=== PATIENT | female | born 1955 | race Caucasian/White ===

== ENCOUNTER → 2017-07-08 10:24 | Outpatient (CLI) | payer OTHER, SELFPAY ==
[2017-07-08 11:36] LABS: Anion Gap 4 (5-15); BUN 10 mg/dL (7-18); BUN/Creat Ratio 13.4 RATIO (10-20); Calcium,Total 9.7 mg/dL (8.5-10.1); Chloride 106 mmol/L (98-107); Creatinine, Serum 0.75 mg/dL (0.55-1.02); EST Glomerular Filtration Rate 84 mL/min (>60); Est Glom Filt Rate - Afr Amer 101 mL/min (>60); Glucose 86 mg/dL (74-106); Potassium 3.8 mmol/L (3.5-5.1); Sodium Level 139 mmol/L (136-145)
== END ==
PROVIDERS: Visit Provider Nurse Practitioner Family
DX: I25.10 Atherosclerotic heart disease of native coronary artery without angina pectoris (principal); I10 Essential (primary) hypertension
CPT/HCPCS: 36415; 80048

== ENCOUNTER → 2017-12-02 09:53 | Outpatient (CLI) | payer OTHER, SELFPAY ==
[2017-12-02 12:57] LABS: AST(SGOT) 22 U/L (15-37); Alanine Aminotransfer ALT/SGPT 32 U/L (13-56); Albumin, Serum 3.8 g/dL (3.2-5.0); Alkaline Phosphatase 97 U/L (45-117); Bilirubin, Direct 0.16 mg/dL (0.00-0.30); Cholesterol 162 mg/dL (200); Globulin 3.7 g/dL (2.2-4.2); High Density Lipoprotein 52 mg/dL; Protein, Total 7.5 g/dL (6.4-8.2); Triglycerides 140 mg/dL; Very Low Density Lipoprotein 28 mg/dL (5-40)
== END ==
PROVIDERS: Nurse Practitioner Family; Visit Provider Internal Medicine Cardiovascular Disease
DX: E78.5 Hyperlipidemia, unspecified (principal); Z79.899 Other long term (current) drug therapy; I25.10 Atherosclerotic heart disease of native coronary artery without angina pectoris
CPT/HCPCS: 36415; 80061; 80076

== ENCOUNTER → 2018-05-12 10:24 | Outpatient (CLI) | payer OTHER, SELFPAY ==
[2018-05-12 12:33] LABS: AST(SGOT) 19 U/L (15-37); Alanine Aminotransfer ALT/SGPT 31 U/L (13-56); Albumin, Serum 3.7 g/dL (3.2-5.0); Alkaline Phosphatase 100 U/L (45-117); Bilirubin, Direct 0.15 mg/dL (0.00-0.30); Cholesterol 164 mg/dL (200); Globulin 3.5 g/dL (2.2-4.2); High Density Lipoprotein 52 mg/dL; Protein, Total 7.2 g/dL (6.4-8.2); Triglycerides 158 mg/dL; Very Low Density Lipoprotein 32 mg/dL (5-40)
--- OUTSIDE RECORDS SUMMARY | 2018-07-14 07:42 | XMS RPT_ITS ---
:1955 Author Organization OHIP Care Team Providers Name Role Phone Minesh Urban Attending Unavailable Minesh Urban Referring Unavailable Primay Care Physicia, No Primary Care Unavailable MoodPrince landa Attending Unavailable Primay Care Physicia, No Referring Unavailable Minesh Urban Attending Unavailable Primay Care Physicia, No Referring Unavailable Primay Care Physicia, No Primary Care Unavailable Minesh Urban Attending Unavailable Minesh Urban Referring Unavailable Primay Care Physicia, No Primary Care Unavailable Moodispasona, Prince Attending Unavailable Moodispasona, Prince Referring Unavailable Primay Care Physicia, No Primary Care Unavailable [facility] Admitting Unavailable [facility] Attending Unavailable [facility] Primary Care Unavailable LAURENCE BAIG Consulting Unavailable PROBLEMS PROBLEMS DATE TYPE CONDITION / CODE ATTENDING STATUS SOURCE 08/05/2017 Unknown I25.10 - Minesh Urban [place] Atherosclerotic heart [facility] coronary artery Repository without angina pectoris / I25.10(ICD-10) 07/08/2017 Unknown I10 - Essential Minesh Urban [place] (primary) [facility] hypertension / Hospital I10(ICD-10) Repository PROCEDURES PROCEDURES No Procedure Records FoundRESULTS RESULTS LIVER PROFILE Collected: 05/12/2018 Status: F Source: JELM 10:30 AM [facility] [place] REPOSITORY TYPE CODE TESTS RESULT OUT OF RANGE REFERENCE UNITS LAB L501.1500 6.4-8.2 g/dL Normal T PROT 7.2 LAB L501.1800 3.2-5.0 g/dL Normal ALB 3.7 LAB L501.1950 2.2-4.2 g/dL Normal GLOB 3.5 LAB L501.4100 15-37 U/L Normal AST 19 LAB L501.4305 45-117 U/L Normal ALK P 100 LAB L501.4405 13-56 U/L Normal ALT 31 LAB L501.4600 0.20-1.00 mg/dL Normal T BILI 0.50 LAB L501.4700 0.00-0.30 mg/dL Normal D BILI 0.15 Performed By: #### L500.3400, L500.4100 #### [facility] [address] [place], [address] LIPID PROFILE Collected: 05/12/2018 Status: F Source: JELM 10:30 AM [facility] [place] REPOSITORY TYPE CODE TESTS RESULT OUT OF RANGE REFERENCE UNITS LAB L501.4900 200 mg/dL Normal CHOL 164 Result Comment: <200 mg/dL Desirable 200-240 mg/dL Borderline >240 mg/dL High Risk LAB L501.5000 mg/dL Normal TRIG 158 Result Comment: The drugs N-Acetylcysteine and Metamizole may falsely depress this assay. Serum Triglycerides Reference Interval Normal <150 mg/dL Borderline high 150 - 199 mg/dL High 200 - 499 mg/dL Very High > or = 500 mg/dL LAB L501.6400 mg/dL Normal HDL 52 Result Comment: The drugs N-Acetylcysteine and Metamizole may falsely depress this assay. Reference Range HDL <40 mg/dL Low HDL Cholesterol HDL >or= 60 mg/dL High HDL Cholesterol LAB L501.6500 0-130 mg/dL Normal LDL 80 LAB L501.6600 5-40 mg/dL Normal VLDL 32 Performed By: #### L500.3400, L500.4100 #### [facility] [address] [place], [place], [id number] LIVER PROFILE Collected: 12/02/2017 Status: F Source: JELM 9:57 AM [facility] [place] REPOSITORY TYPE CODE TESTS RESULT OUT OF RANGE REFERENCE UNITS LAB L501.1500 6.4-8.2 g/dL Normal T PROT 7.5 LAB L501.1800 3.2-5.0 g/dL Normal ALB 3.8 LAB L501.1950 2.2-4.2 g/dL Normal GLOB 3.7 LAB L501.4100 15-37 U/L Normal AST 22 LAB L501.4305 45-117 U/L Normal ALK P 97 LAB L501.4405 13-56 U/L Normal ALT 32 LAB L501.4600 0.20-1.00 mg/dL Normal T BILI 0.60 LAB L501.4700 0.00-0.30 mg/dL Normal D BILI 0.16 Performed By: #### L500.3400, L500.4100 #### [facility] [address] [place], [place], [address] LIPID PROFILE Collected: 12/02/2017 Status: F Source: JELM 9:57 AM [facility] [place] REPOSITORY TYPE CODE TESTS RESULT OUT OF RANGE REFERENCE UNITS LAB L501.4900 200 mg/dL Normal CHOL 162 Result Comment: <200 mg/dL Desirable 200-240 mg/dL Borderline >240 mg/dL High Risk LAB L501.5000 mg/dL Normal TRIG 140 Result Comment: The drugs N-Acetylcysteine and Metamizole may falsely depress this assay. Serum Triglycerides Reference Interval Normal <150 mg/dL Borderline high 150 - 199 mg/dL High 200 - 499 mg/dL Very High > or = 500 mg/dL LAB L501.6400 mg/dL Normal HDL 52 Result Comment: The drugs N-Acetylcysteine and Metamizole may falsely depress this assay. Reference Range HDL <40 mg/dL Low HDL Cholesterol HDL >or= 60 mg/dL High HDL Cholesterol LAB L501.6500 0-130 mg/dL Normal LDL 82 LAB L501.6600 5-40 mg/dL Normal VLDL 28 Performed By: #### L500.3400, L500.4100 #### [facility] [address] [place], [address] CARDIOLOGY VISIT Observed: 07/08/2017 Status: F Source: [place] REPORT 2:44 PM [facility] REPOSITORY [facility] [address] [place] [address] OFFICE VISIT Date of Service: 07/08/17 MR#: [id number] Acct: [id number] Name: LAURENCE BAIG Rep #: [id number] : 1955 Provider: VARGAS Urban Age/Sex: 61/F Location: [facility] [place] Status: Signed HPI HPI Details: LAURENCE BAIG, is a 61 F who presents to the office today for a cardiovascular outpatient follow-up. She has a history of cardiomyopathy, which has resolved, syncope in 2010, ventricular ectopy/PVCs, coronary artery disease, hypertension, and hyperlipidemia. Pt. denies chest, arm, jaw, or neck discomfort. Her exercise tolerance is stable though limited d/t back pain. Pt. denies symptoms of CHF, palpitations, lightheadedness, dizziness, near syncope, or syncopal episodes. Pt. denies edema or claudication issues. Pt. denies orthopnea, PND, fever, chills, blood in urine, blood in stool, or unexplainable fatigue. Patient states some leg muscle pain and cramps. She does acknowledge some back pain that may be contributing to this. Intake Vital Signs07/08/17 Height 5 ft 6 in 07/08/17 Weight: 198 lb 07/08/17 Body Mass Index (BMI) 31.9 07/08/17 Blood Pressure 142/88 07/08/17 Blood Pressure Location Lt brachial Intake Visit Reasons: 1 Y FU Proof Carrier Required: No Accompanied by: None Is patient in pain?: No Allergies latex Adverse Reaction (Severe, Verified 07/08/17 09:39) Rash lisinopril Adverse Reaction (Severe, Verified 07/08/17 09:39) Caused cough oxycodone Adverse Reaction (Intermediate, Verified 07/08/17 09:39) Nausea AND Vomiting GABDOLINIUM Allergy (Uncoded 03/19/14 13:36) Anaphylaxis Medications Aspirin E.C. [Ecotrin] 325 mg PO DAILY@0800 03/19/14 [History Confirmed 07/02/17] Losartan Potassium [Cozaar] 25 mg PO BID 03/19/14 [History Confirmed 07/02/17] Metoprolol Tartrate [Lopressor (beta camilla)] 25 mg PO BID 03/19/14 [History Confirmed 07/02/17] Potassium Chloride [K-Dur] 20 meq PO DAILY 03/19/14 [History Confirmed 07/02/17] Triamterene 37.5MG/Hctz 25MG [Dyazide (G)] 1 cap PO DAILY 03/19/14 [History Confirmed 07/02/17] atorvastatin 80 mg tablet 80 mg PO QHS tab 07/02/17 [History Confirmed 07/02/17] ibuprofen 200 mg tablet See Label Instructions PO QDAY PRN tab 07/02/17 [History Confirmed 07/02/17] vitamins-lipotropics tablet 1 tab PO QDAY 07/08/17 [History Confirmed 07/08/17] Ejection fraction %: 55 to 59 PFSH Medical History Atherosclerotic heart disease of circle coronary artery without angina pectoris (Chronic) Premature ventricular contractions (Chronic) Cardiomyopathy in other diseases classified elsewhere (Chronic) Hypertension (Chronic) Hyperlipidemia (Chronic) Syncope and collapse (Acute) Surgical History History of laparoscopic appendectomy (Resolved 02/2014) Family History Father Cancer Lung cancer Brother Hypertension Social History Smoking Status: Current some day smoker tobacco type: cigarettes quit status: considering quitting alcohol intake: current alcohol intake frequency: a few times a week Alcohol type: wine substance use type: does not use caffeine: Yes Type: tea what type of physical activity do you participate in: none seatbelt use: always do you feel safe at home: Yes ROS Const Const: Negative for fatigue, weakness, body ache, fever(s) or chills ENT ENT: Negative for dizziness Cardio Chest Pain: No Palpitations: No Edema: None Muscle aches with walking: None Resp Respiratory: Negative for SOB with activity, SOB at rest, SOB orthopnea\SOB lying down or paroxysmal nocturnal dyspnea GI GI: Negative nausea, black,tarry stools, bright, red blood in stools or vomiting blood/hematemesis : Negative for hematuria or frequent nighttime urination/ nocturia Musc Musc: Positive for muscle aches/ myalgia (mainly upper thighes and knee area) Neuro Neuro: Negative for weakness, dizziness, lightheadedness, near syncope, syncope or orthostatic symptoms Endo Endo: Negative for fatigue Cardiology Exam Const Appearance: cooperative, healthy appearing, comfortable and no acute distress Orientation: alert, awake and oriented x3 Head Head: normal to inspection Mouth: oral mucosae normal Neck Neck: no JVD and normal visual inspection Carotids: normal carotid upstroke Chest Chest inspection: normal inspection of the chest and normal respiratory effort Auscultation: Bilateral: Clear to Auscultation Cardio Rate: regular rate Rhythm: regular rhythm Heart sounds: S1 normal and S2 normal; negative rub or gallop GI GI: normal to inspection Neuro General: alert, awake, oriented x3 and CN's II-XI intact bilaterally Skin Skin: no rashes or lesions noted Extremities Pulses: Normal: Right Posterior Tibial Pulse, Left Posterior Tibial Pulse, Right Radial Pulse, Left Radial Pulse Lower Extremity Edema: None: Bilateral Psych Psychological: normal affect Supplemental Info Echocardiogram from March 2011 showed an estimated ejection fraction of 55%, mildly enlarged left atrium, trivial mitral valve insufficiency, trivial tricuspid valve insufficiency, trivial aortic valve insufficiency, and trivial central pulmonic valve insufficiency. Heart catheterization from September 2010 showed left main coronary artery is normal, LAD with 40-50% stenosis, LCx that was normal, and RCA that was normal. Her ejection fraction was noted to be 40-45%. Assessment AND Plan 1. Cardiomyopathy in other diseases classified elsewhere I43 DAVID Phillips Patient's echocardiogram from March 2011 showed an estimated ejection fraction 55%. Patient denies any shortness of breath or lower extremity pedal edema. We will continue to monitor this through history, exam, and repeat echocardiogram. Patient will continue with beta-camilla and ARB. 2. Atherosclerosis of circle coronary artery of circle heart without angina pectoris I25.10 DAVID Phillips Patient's heart catheterization from September 2010 showed an ejection fraction of 40-45%, main coronary artery was normal, LAD with 40-50% stenosis, LCx was normal, and RCA was normal. Patient denies any chest pain, arm pain, jaw pain, neck pain, shortness of breath, or fatigue suggestive of angina at this time. We will continue to monitor this. We will not make any medication regimen changes and will continue risk factor modification. Orders Orders: 3. PVC (premature ventricular contraction) I49.3 Yun Urban DIRECTOR OF SAFETY AND SECURITY-C There is not appear to be any symptomatic recurrence of this. We will continue current medications and will continue to monitor this. 4. Essential hypertension I10 Plan - DAVID Arzate Patient's blood pressures on the higher end of expected range. She was asked to continue to monitor her blood pressure at home and contact our office in approximately 2 weeks with an update on average blood pressure readings. If her blood pressure increases or remains elevated we can increase losartan to 50 mg twice daily. We will wait for the patient to contact our office for further adjustment if needed. Orders Orders: 5. Mixed hyperlipidemia E78.2 Plan - DAVID Arzate Patient's most recent lipid panel from March 2017 showed cholesterol: 152, HDL: 62, LDL: 69, and triglycerides: 106. Patient will continue with current cholesterol lowering medication. She is expected to repeat both liver and lipid profile in September 2017. We will wait for results of these tests for further recommendation. 6. Syncope, unspecified syncope type R55 Plan - DAVID Arzate There has not been any recurrence of this. We will continue to monitor this. 7. Muscle cramps R25.2 Plan - DAVID Arzate Patient will have a BMP done to evaluate kidney function and potassium level source of her muscle cramps. She is waiting for her insurance to change in which she will follow-up with primary care physician regarding back pain as a contributary source of her leg pain. Patient will be contacted at [phone], Office number, or [phone], cell phone, with results of the BMP. Plan Detail Other Medications New: Discontinued: hydrocodone-acetaminophen 5-325 mg Discontinued Reason: Pt 1 tab PO Q4H PRN PRN Pain no longer taking Additional Comments - DAVID Arzate Discussed the above patient with Dr. Kilgore in Dr. Alvarez's absence, he agrees with the plan of care. Thank you for allowing us to participate in the patients plan of care, if you have any questions please do not hesitate to call. This note was generated using a voice recognition system and there may be incorrect words, spelling or punctuation that were not noted when reviewing the office note prior to saving. Follow Up 1 Year (PFM) Coding Level of Care Code Off vis,est,level 3 Diagnoses Cardiomyopathy in other diseases classified elsewhere I43 Atherosclerosis of circle coronary artery of circle heart without angina pectoris I25.10 [place] vs. transplanted heart: circle heart PVC (premature ventricular contraction) I49.3 Essential hypertension I10 Hypertension type: essential hypertension Mixed hyperlipidemia E78.2 Hyperlipidemia type: mixed hyperlipidemia Syncope, unspecified syncope type R55 Syncope type: unspecified Muscle cramps R25.2 Coding Level of Care Code Off vis,est,level 3 Diagnoses Cardiomyopathy in other diseases classified elsewhere I43 Atherosclerosis of circle coronary artery of circle heart without angina pectoris I25.10 [place] vs. transplanted heart: circle heart PVC (premature ventricular contraction) I49.3 Essential hypertension I10 Hypertension type: essential hypertension Mixed hyperlipidemia E78.2 Hyperlipidemia type: mixed hyperlipidemia Syncope, unspecified syncope type R55 Syncope type: unspecified Muscle cramps R25.2 07/08/17 1249 <Electronically signed by Minesh Urban DIRECTOR OF SAFETY AND SECURITY-C> Date Minesh Urban DIRECTOR OF SAFETY AND SECURITY-C 07/08/17 1444<Electronically signed by Real Kilgore MD> Cosigner Signature: Date (if applicable) Real Kilgore MD CC: BASIC METABOLIC Collected: 07/08/2017 Status: F Source: [place] PROFILE (BMP) 10:34 AM [facility] [place] REPOSITORY TYPE CODE TESTS RESULT OUT OF RANGE REFERENCE UNITS LAB L501.0100 74-106 mg/dL Normal GLU 86 Result Comment: Please note revised GLUCOSE reference range effective 2017. LAB L501.1000 7-18 mg/dL Normal BUN 10 LAB L501.1100 0.55-1.02 mg/dL Normal CREAT,SERUM 0.75 Result Comment: The validity of the calculated GFR AND GFRAA in patients over 70 years has not been determined. Clinical correlation is essential. LAB L501.1110 >60 mL/min Normal EST GFR 84 Result Comment: Non- GFR Calc LAB L501.1115 >60 mL/min Normal EST GFR - AA 101 Result Comment: GFR Calc LAB L501.1300 10-20 RATIO Normal BUN/CRE 13.4 LAB L501.2200 8.5-10.1 mg/dL CA Normal 9.7 LAB L501.5300 136-145 mmol/L NA Normal 139 LAB L501.5600 3.5-5.1 mmol/L K Normal 3.8 LAB L501.5900 98-107 mmol/L CL Normal 106 LAB L501.6100 21.0-32.0 mmol/L Normal CO2 29.0 LAB L501.6200 5-15 Low GAP 4 Performed By: #### L500.2500 #### [facility] [address] [place], [address] ALLERGIES ALLERGIES DATE TYPE / CODE NAME / CODE REACTION SEVERITY SOURCE Drug atorvastatin/F00 MYALGIAS [place] 8 Allergy/[id number]( 6779215(RXNORM) [facility] SNOMED CT) Hospital Repository Drug lisinopril/F0060 Caused cough [place] Allergy/545575463( 27291(RXNORM) [facility] SNOMED CT) Hospital Repository Drug oxycodone/Q68809 Nausea [place] 8 Allergy/569818006( 1558(RXNORM) [facility] Drug latex/[id number] Rash SV [place] 8 Allergy/775642959( (RXNORM) [facility] SNOMED CT) Hospital Repository Miscellaneous GABDOLINIUM Anaphylaxis Unknown [place] 4 Allergy/964658204( [facility] SNOMED CT) Hospital Repository ENCOUNTERS ENCOUNTERS ADMIT/DISCHARGE ACCOUNT ADMITTING ENCOUNTER LOCATION SOURCE NUMBER CLASS 05/12/2018 [id number] Ambulatory [place] 1 [facility] ing:MTLAB Repository 04/20/2018 [id number] Taj AMADOR [facility] Repository 12/02/2017 [id number] Ambulatory [place] 0 [facility] ing:MTLAB Repository 07/08/2017 [id number] Ambulatory [place] 4 [facility] ing:LAB Repository 07/08/2017/ [id number] Ambulatory BMSBuilding:B [place] 8 9 [facility] Repository 06/29/2017 [id number] Ambulatory BMSBuilding:B [place] 0 [place] Repository PAYERS PAYERS ENCOUNTER GUARANTOR PAYER SUBSCRIBER SOURCE 05/12/2018 LAURENCE J Primary LAURENCE J [place] [id number] [facility] ANDHOLMDOB: [facility] BOX icy Number: [id number] [id number] Repository [address]Bvl: 330) e Date:[id number] [phone] () [address] [place] [phone]: 05/12/2018 Secondary NOT GIVENUNK [place] Insurance:SELF PAY [facility] Number: Effective Repository Date:2018-05-12 12/02/2017 YADIRA Sharp Primary LAURENCE J [place] [address] [facility] [address] icy Number: [id number] Hospital [address]Ufw: 330 [id number] Repository [phone] () e Date:[id number] [address] [place] [phone]: 12/02/2017 Secondary NOT GIVENUNK [place] Insurance:SELF PAY [facility] Number: Effective Repository Date:2017-12-02 07/08/2017 YADIRA Sharp Primary LAURENCE J [place] [address] [facility] [address] icy Number: [id number] Hospital [address]Pnb: 330 [id number] Repository [phone] () e Date:[id number] [address] [place] [phone]: 07/08/2017 Secondary NOT GIVENUNK [place] Insurance:SELF PAY [facility] Number: Effective Repository Date:2017-07-08 07/08/2017 YADIRA Sharp Primary LAURENCE J [place] [address] [facility] [address] icy Number: [id number] Hospital [address]Kxe: 330 [id number] Repository [phone] () e Date:[id number] [address] [place] [phone]: 07/08/2017 Secondary NOT GIVENUNK [place] Insurance:SELF PAY [facility] Number: Effective Repository Date:2017-07-08 06/29/2017 YADIRA Sharp Primary LAURENCE J [place] [address] Insurance:[facility] [address] [facility] [id number] Hospital [address]Bsu: (330) Number: Repository [phone] () [id number] Date:[id number] [address], [place] [address]HF: 06/29/2017 Secondary NOT GIVENUNK [place] Insurance:SELF PAY [facility] Number: Effective Repository Date:2017-04-01
== END ==
PROVIDERS: Referring Provider Nurse Practitioner Family; Visit Provider Nurse Practitioner Family
DX: E78.5 Hyperlipidemia, unspecified (principal)
CPT/HCPCS: 36415; 80061; 80076

== ENCOUNTER 2018-10-11 19:16 | Observation (INO) | payer OTHER, SELFPAY ==
[2018-06-28 09:33] VITALS: BMI 32.9
[2018-10-11 19:17] VITALS: BP 157/91; PULSE 117; RESP 16; TEMP 36.6; O2SAT 97; BMI 30.7
--- NOTE | 2018-10-11 19:22 | CT_ITS ---
STUDY: CT BRAIN WITHOUT CONTRAST REASON FOR EXAM: Female, 63 years old. Syncope, head injury RADIATION DOSAGE (If Supplied By Facility): CTDIvol = ( 44.99 ) mGy, DLP = ( 796.11 ) mGycm TECHNIQUE: Transaxial CT imaging of the brain was performed without administration of intravenous contrast material. Individualized dose optimization techniques were used for this CT. COMPARISON: No relevant priors. FINDINGS: Posterior scalp injury. Normal calvarium. Normal size ventricles and extra-axial spaces for the patient's age. Normal white matter tracts of the cerebral hemispheres. Normal basal ganglia and thalami. Normal brainstem. Normal cerebellum. There is no intracranial hemorrhage. There are no findings of an acute ischemic infarction. Mild maxillary sinus mucosal thickening, left more than right. CT/Brain/Head without Contrast IMPRESSION: Normal unenhanced CT scan of the brain. Posterior scalp injury. Maxillary sinus disease. Electronically Signed: Oscar Allred DO at 19:55 EDT Tel [phone], Service support ,
--- NOTE | 2018-10-11 19:23 | CT_ITS ---
STUDY: CT CERVICAL SPINE WITHOUT CONTRAST REASON FOR EXAM: Female, 63 years old. Syncope RADIATION DOSAGE (If Supplied By Facility): CTDIvol = ( 23.03 ) mGy, DLP = ( 409.70 ) mGycm TECHNIQUE: High resolution transaxial imaging was performed without contrast material. Sagittal and coronal images were reconstructed. Individualized dose optimization techniques were used for this CT. COMPARISON: None FINDINGS: Normal craniovertebral junction. Normal anterior atlantoaxial articulation. Normal odontoid process. Straightening of the cervical lordosis. Normal vertebral bodies and posterior osseous elements. C2-3: Normal endplates. Normal disc height and morphology. Normal central canal and intervertebral neuroforamina. C3-4: Normal endplates. Normal disc height and morphology. Normal central canal. Facet hypertrophy slightly narrowing the right intervertebral neural foramen. C4-5: Spurring at the endplates. Normal disc height and morphology. Normal central canal. Uncovertebral spurring slightly protruding into the right intervertebral neural foramen. C5-6: Spurring at the endplates. Narrowed disc height. Normal central canal. Uncovertebral spurring narrowing the intervertebral neuroforamina. C6-7: Mild spurring at the endplates. Narrowed disc height. Posterior spurs slightly protruding into the central canal. Uncovertebral spurring slightly narrowing the intervertebral neuroforamina. C7-T1: Normal endplates. Normal disc height and morphology. Normal central canal and intervertebral neuroforamina. Normal visualized soft tissue structures. CT/Spine Cervical without Contras IMPRESSION: Mild degenerative changes of the of the cervical spine. Electronically Signed: Oscar Allred DO at 20:03 EDT Tel [phone], Service support ,
--- NOTE | 2018-10-11 20:21 | EKG12_ITS ---
Test Reason : MK Blood Pressure : / mmHG Vent. Rate : 095 BPM Atrial Rate : 095 BPM P-R Int : 132 ms QRS Dur : 096 ms QT Int : 342 ms P-R-T Axes : 069 059 044 degrees QTc Int : 429 ms Normal sinus rhythm Possible Left atrial enlargement Nonspecific ST abnormality Abnormal ECG Confirmed by CYNDI OCASIO, IAN ([id number]), editor greeting card NICANOR MONTOYA ([id number]) on 10/13/2018 8:03:29 AM Referred By: Confirmed By:IAN HANNA MD
--- NOTE | 2018-10-11 20:23 | ED.VISSUMM ---
- ER Visit Summary Date of Service: 10/11/18 Chief Complaint: Syncope History of Present Illness: The patient is a 63 F presents after syncopal episode. Patient states initially that she was sitting in chair and passed out and fell off a chair hitting the back of her head. She states she has been lightheaded intermittently for the past week. She states she is getting over an upper respiratory infection. She later stated that she was standing when this occurred. Her tetanus is up-to-date. She denies chest pain or shortness of breath. She has a history of M?ni?re's disease and orthostatic hypotension. She does not believe that she had recently changed positions when this happened. Denies other complaints. Physical Examination: Vitals are stable. Patient is afebrile. Alert no acute distress. HEENT exam 1.5 cm laceration posterior scalp Neck is mild diffuse tenderness with no step-off Lungs are clear and equal bilaterally. Heart is regular and tachycardic Abdomen is soft nontender nondistended. Extremities are unremarkable. Skin is warm and dry. No focal neurologic deficit. Remainder of exam is unremarkable. Emergency Department Course and Treatment: CT head shows normal unenhanced CT scan of the brain. Posterior scalp injury. CT C-spine shows mild degenerative changes. EKG is sinus rate of 95. Chest x-ray shows no acute process. CBC shows white count 14.5. Chemistries unremarkable. Troponin is negative. Her scalp laceration was cleaned and anesthetized with lidocaine. 2 xavier were placed. Discussed with the hospitalist for observation. Disposition: Observation Impression: Syncope, scalp laceration, laceration repair This note was generated with [employer] dictation software. It may contain incorrect words, spelling, and punctuation that were not noted in review of the chart prior to signing ED Disposition - Plan for ED Patient: Referrals: Care Physician,No Primary [Primary Care Provider] -
[2018-10-11 20:33] VITALS: BP 145/80; PULSE 96; RESP 12; O2SAT 96
--- NOTE | 2018-10-11 20:40 | RAD_ITS ---
STUDY: X-RAY CHEST REASON FOR EXAM: Female, 63 years old. Syncope TECHNIQUE: Frontal view COMPARISON: None. FINDINGS: The lungs are clear and expanded. There is no demonstrated pleural abnormality. Normal size heart. Normal mediastinum and tiffanie. Normal visualized pulmonary arteries. Normal visualized aortic arch and descending thoracic aorta. Mild degenerative changes and scoliosis of the thoracic spine. Mild degenerative changes at the shoulders. There is no demonstrated abnormality of the visualized soft tissue structures of the upper abdomen. RAD/Chest 1 View (Portable) IMPRESSION: Normal x-ray examination of the chest. Electronically Signed: Oscar Allred DO at 20:54 EDT Tel [phone], Service support ,
[2018-10-11 21:06] LABS: Absolute Lymphocyte Count 1.63 X10^3/ul (0.83-4.51); Absolute Neutrophil Count 11.7 X10^3/uL (2.0-7.7); Basophil# 0.03 X10^3/uL; Basophil% 0.2 % (0-1); Eosinophil# 0.04 X10^3/uL; Eosinophils% 0.3 % (0-5); Hematocrit 44.1 % (37-47); Hemoglobin 15.2 g/dl (12.0-15.0); Lymphocyte # 1.63 X10^3/ul (4.0); Lymphocyte % 11.2 % (19-41); Mean Corp Hgb Conc 34.5 g/gl (32-36); Mean Corpuscular Hgb 31.1 pg (27.0-32.0); Mean Corpuscular Volume 90.4 fL (81-99); Mean Platelet Vol. 9.8 fl (6.2-12.0); Monocyte# 1.08 X10^3/uL; Monocyte% 7.4 % (0-10); Neutrophil # 11.68 X10^3/uL (2.7-7.7); Neutrophil % 80.6 % (47-70); Platelet Count 270 K/mm3 (150-450); RBC Distribution Width SD 42.6 fl (35.1-43.9); Red Blood Count 4.88 M/mm3 (4.2-5.4); White Blood Count 14.5 K/mm3 (4.4-11.0)
[2018-10-11 21:08] LABS: POSITIVE COUNT NO; POSITIVE DIFFERENTIAL NO; POSITIVE MORPHOLOGY NO
[2018-10-11 21:14] LABS: Anion Gap 9 (5-15); BUN 13 mg/dL (7-18); BUN/Creat Ratio 15.3 RATIO (10-20); Chloride 102 mmol/L (98-107); Creatinine, Serum 0.85 mg/dL (0.55-1.02); EST Glomerular Filtration Rate 72 mL/min (>60); Est Glom Filt Rate - Afr Amer 87 mL/min (>60); Estimated Creatinine Clearance 62.59 ml/min; Glucose 104 mg/dL (74-106); Potassium 3.5 mmol/L (3.5-5.1); Sodium Level 135 mmol/L (136-145)
[2018-10-11 22:28] VITALS: BP 154/85; PULSE 89; RESP 17; O2SAT 96
--- NOTE | 2018-10-11 22:46 | HP.PCM_ITS ---
Problem List (1) Syncope and collapse Status: Acute (2) Mixed hyperlipidemia Status: Chronic (3) Essential hypertension Status: Chronic (4) Atherosclerotic heart disease of [place] coronary artery without angina pectoris Status: Chronic Qualifiers: [place] vs. transplanted heart: [place] heart Qualified Code(s): I25.10 - Atherosclerotic heart disease of [place] coronary artery without angina pectoris (5) Cardiomyopathy in other diseases classified elsewhere Status: Chronic History of Present Illness Date of Admission: 10/11/18 Chief Complaint: Syncopal event, hit head, dizziness The patient is a 63 y/o F w/ PMHx: CAD (Catheterization w/ mid LAD stenosis 40- 50%), HTN, HLD, Cardiomyopathy unclear type, Hx PVCs, Meniere's Disease, Hx Orthostatic Hypotension, Obesity who [facility] with history of recent upper respiratory infection symptoms approximately 2 weeks prior with near resolution however ongoing lightheadedness for the last week with episode of syncope with worsening lightheadedness prior, falling backwards and hitting her head on a cabinet with very brief loss of consciousness, lasting only seconds she notes with sore neck and head following with a noted posterior scalp bleed secondary to laceration prompting evaluation in the ED. Work-up in the ED included T 97.8, heart rate 117, BP 157/91, respiratory rate 16, 97% on room air, CBC with W BC 14.5, hemoglobin 15.2, platelet 270 with left shift, BMP unremarkable aside sodium 135, troponin < 0.015, CT brain with no acute findings aside posterior scalp injury and maxillary sinus disease, cervical spine CT with mild degenerative changes of the cervical spine, chest x-ray with no acute cardia pulmonary findings, EKG with SR with non-specific ST changes, depression V3. In the ED 1.57 m posterior scalp laceration was cleaned and anesthetized with lidocaine with 2 xavier placed. Past Medical History Past Medical History (Chronic Problems): Chronic Problems (Last Reviewed 06/28/18 @ 09:37 by Violette Chung) Mixed hyperlipidemia (Chronic) Essential hypertension (Chronic) Atherosclerotic heart disease of [place] coronary artery without angina pectoris (Chronic) Premature ventricular contractions (Chronic) Cardiomyopathy in other diseases classified elsewhere (Chronic) Encounter for long-term (current) use of other medications (Chronic) Medical History: Medical History (Last Reviewed 06/28/18 @ 09:37 by Violette Chung) Mixed hyperlipidemia (Chronic) E78.2 Essential hypertension (Chronic) I10 Ventricular ectopy (Acute) I49.3 Atherosclerotic heart disease of [place] coronary artery without angina pectoris (Chronic) I25.10 Premature ventricular contractions (Chronic) I49.3 Cardiomyopathy in other diseases classified elsewhere (Chronic) I43 Syncope and collapse R55 History of left heart catheterization (LHC) Onset Date: ~09/19/10 Z98.890 Mid LAD stenosis 40-50% Hyperlipidemia (Inactive) E78.5 Hypertension (Inactive) I10 Allergies atorvastatin [From Lipitor] Adverse Reaction (Severe, Verified 10/11/18 19:17) Myalgias latex Adverse Reaction (Severe, Verified 10/11/18 19:17) Rash lisinopril Adverse Reaction (Severe, Verified 10/11/18 19:17) Caused cough oxycodone Adverse Reaction (Intermediate, Verified 10/11/18 19:17) Nausea & Vomiting GABDOLINIUM Allergy (Uncoded 10/11/18 19:17) Anaphylaxis Home Medications: Ambulatory Orders Medication Instructions Recorded Aspirin E.C. [Ecotrin] 325 mg PO DAILY@0800 03/19/14 Losartan Potassium [Cozaar] 25 mg PO BID 03/19/14 Metoprolol Tartrate [Lopressor 25 mg PO BID 03/19/14 (beta [place])] Potassium Chloride [K-Dur] 20 meq PO DAILY 03/19/14 Triamterene 37.5MG/Hctz 25MG 1 cap PO DAILY 03/19/14 [Dyazide (G)] vitamins-lipotropics tablet 1 tab PO QDAY 07/08/17 Amoxicillin/Potassium Clav 1 ea PO BID 10/11/18 [Augmentin 875-125 Tablet] Niacin 500 mg PO DAILY 10/11/18 Prednisone 5 mg PO DAILY 10/11/18 Surgical History: Surgical History (Last Reviewed 06/28/18 @ 09:37 by Violette Chung) History of laparoscopic appendectomy Onset Date: ~02/2014 Z90.49 Surgical History: - - Appendectomy, right knee arthroscopic surgery. 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 Tobacco Use: Cigarettes Alcohol: None Drugs: None - *Family History Maternal Family History: Family History (Last Reviewed 06/28/18 @ 09:37 by Violette Chung) Father Cancer Brother Hypertension History Items: Cancer, Hypertension Paternal Family History: Family History (Last Reviewed 06/28/18 @ 09:37 by Violette Chung) Father Cancer Brother Hypertension History Items: Hypertension Review of Systems Constitutional: Reports: Anorexia, Malaise, Weakness, Fatigue. Denies: Chills, Fever, Weight Change HEENT: Reports: Nasal Congestion, Sinus Congestion, Sinus Drainage. Denies: Head Aches Cardiovascular: Reports: Light Headedness, Syncope. Denies: Chest Pain, Palpitations Respiratory: Reports: Cough. Denies: Shortness of Breath, Shortness of breath at rest, Shortness of breath upon exertion, Sputum production Gastrointestinal: Denies: Abdominal Pain, Nausea, Vomiting Genitourinary: Denies: Dysuria Musculoskeletal: Reports: Back Pain, Joint Pain, Muscle pain. Denies: Joint Tenderness Skin: Reports: Skin Changes, Wounds. Denies: Rash Neurological: Denies: Numbness, Tingling, Focal weakness Psychiatric: Denies: Anxiety, Depression, Homicidal Ideations, Suicidal Ideations Hematologic/ Lymphatic: Denies: Easy Bruising, Easy Bleeding VTE Information - Inpt Only VTE Present on Admission: No VTE Mechan Device Prophylaxis: SCD's VTE Pharm Prophylaxis ordered?: Yes Patient Problems: Active and Suspected Problems (Last Reviewed 06/28/18 @ 09:37 by Violette Chung) Syncope and collapse (Acute) Subjective: Seated upright in the bed, fatigued appearance, no acute distress, notes some throbbing to the posterior scalp, s/p recent staple placement to laceration. Objective: Physical Examination: General: awake, alert, oriented x 3 and cooperative, seated upright in the ED bed in no apparent distress, notes posterior scalp and neck uncomfortable but no acute distress. Skin: normal color, turgor, no icterus, cyanosis except posterior scalp with laceration s/p staple x 2 placement. HEENT: AT/NC except posterior scalp with laceration s/p staple x 2 placement, EOMI, PERRLA, mildly dry MM, no carotid bruits or JVD noted. Lungs: CTA bilaterally, moderate effort, moderate decrease BL bases, no rales, ronchi or wheezing. Heart: Regular rate and rhythm; no gallop, rub audible. Abdomen: soft, obese, NTTP, ND, normal BS, no HSM. Extremities: no cyanosis, clubbing, or edema. Neurological: patient awake, alert, oriented x 3; cognitive function intact; pupils equally reactive to light and accomodation; cranial nerves II-XII grossly normal, moving all 4 extremities, no focal deficits, strength moderately to severe legal decrease secondary to acute presentation. Psychiatric: affect appears fatigued, no acute evidence of depressive or anxiety feelings. - Physical Exam Vital Signs Temp Pulse Resp BP Pulse Ox 97.8 F 89 17 154/85 H 96 10/11/18 19:17 10/11/18 22:28 10/11/18 22:28 10/11/18 22:28 10/11/18 22:28 Oxygen Delivery Method Room Air Weight: 190 lb Body Mass Index (BMI) 30.7 Laboratory Tests Past 24 Hrs 10/11/18 10/11/18 20:20 20:20 WBC 14.5 H RBC 4.88 Hgb 15.2 H Hct 44.1 MCV 90.4 MCH 31.1 MCHC 34.5 RDW 13.0 RDW Differential 42.6 Plt Count 270 MPV 9.8 Immature Gran % (Auto) 0.300 Neut % (Auto) 80.6 H Lymph % (Auto) 11.2 L [place] % (Auto) 7.4 Eos % (Auto) 0.3 Baso % (Auto) 0.2 Absolute Neuts (auto) 11.7 H Absolute Lymphs (auto) 1.63 Total Counted Not Reportable Sodium 135 L Potassium 3.5 Chloride 102 Carbon Dioxide 24.0 Anion Gap 9 BUN 13 Creatinine 0.85 Estim Creat Clear Calc 62.59 Est GFR (MDRD) Af Amer 87 Est GFR (MDRD) Non-Af 72 BUN/Creatinine Ratio 15.3 Glucose 104 Calcium 10.0 Troponin I < 0.015 Assessment/Plan All Active Problems (Last Reviewed 06/28/18 @ 09:37 by Violette Chung) Syncope and collapse (Acute) Ventricular ectopy (Acute) The patient is a 63 y/o F w/ PMHx: CAD, HTN, HLD, Cardiomyopathy unclear type, Hx PVCs, Meniere's Disease, Hx Orthostatic Hypotension, Obesity who [facility] with history of recent upper respiratory infection symptoms approximately 2 weeks prior with near resolution however ongoing lightheadedness for the last week with episode of syncope with worsening lightheadedness prior, falling backwards and hitting her head on a cabinet with very brief loss of consciousness. (1) Syncopal Event w/ Fall, Scalp Laceration: Unclear etiololgy,EKG in ED w/ sinus rhythm without evidence of acute ischemia, CXR w/ no acute cardiopulmonary findings, initial trop normal. Will admit to PCU, place on a monitored bed to assure no acute myocardial infarction with serial cardiac enzymes and EKGs. Will maintain on fall precautions, obtain admission orthostatic and AM orthostatic VS and increase hydration if appropriate, obtain ECHO as well as carotid US. PT/OT consultation to ascertain stability and discharge needs. Mag, TSH, FLP in AM pending. Will need staple removal follow-up at discharge. (2) Hx Orthostatic Hypotension: Orthostatic VS requested upon admission and in AM, hold parameters on her BP regimen. (3) CAD: Noted mid LAD lesion 40-50% stenosis, no PCI, maintain on maintain on asa, ARB, BB, statin allergy noted. (4) Cardiomyopathy, Unclear Type: Noted prior, unclear type, maintain on asa, ARB, BB, statin allergy noted, pending ECHO as noted. (5) Hypertension: Continue home regimen including Cozaar, triamterene, hydrochlorothiazide, metoprolol with hold parameters and noted pending orthostatic vital signs, PRN hydralazine. (6) Hyperlipidemia: Noted statin allergy. (7) Obesity: Weight loss and lifestyle changes encouraged, nutrition consulted. (8) Meniere's Disease: No vertiginous symptoms noted, if necessary could add meclizine. (9) Tobacco Abuse: Encouraged cessation, inpatient consultation per RT, NR if desired, currently using nicotine gum outpatient as well as continued cigarette tobacco usage although lessened. (10) DVT prophylaxis: SCD, Lovenox. Code Visit OBSV E&M: 03695 Initial observation care L3
[2018-10-12] VITALS (18 sets, daily range): BP systolic 110–157; BP diastolic 69–83; PULSE 68–101; RESP 12–21; TEMP 36.6–37.3; O2SAT 94–97; BMI 33.0
--- NOTE | 2018-10-12 00:39 | ECHOD_ITS ---
Reason For Study: Syncope Procedure This was a 2D Doppler, Color Flow transthoracic echocardiogram. The exam was of adequate technical quality. Exam performed portable in patient room. Left Ventricle Normal LV size. Left ventricular systolic function is normal. The estimated ejection fraction is 60 %. Diastolic function is indeterminate. No regional wall motion abnormalities noted. Right Ventricle Normal RV size. Normal systolic function. Atria The left atrium is mildly enlarged. Normal right atrium. No doppler evidence for ASD. Mitral Valve There is no mitral annular calcification. Normal mitral valve. Mild (1+) mitral valve insufficiency. Tricuspid Valve Normal tricuspid valve. Trivial tricuspid valve insufficiency. Aortic Valve Trisinus/trileaflet aortic valve. Mild diffuse aortic valve thickening. Pulmonic Valve The pulmonic valve is not well visualized. Trivial pulmonic valve insufficiency. Great Vessels Normal sized aortic root. Pericardium/Pleural No pericardial effusion. MMode/2D Measurements & Calculations LVIDd: 5.3 cm IVSd: 1.1 cm LA dimension: 4.4 cm LVIDs: 3.7 cm LVPWd: 1.0 cm RVDd: 3.4 cm FS: 31.5 % LAV(MOD-bp): 71.1 ml LA A4 area: 21.8 cm2 RA A4 area: 19.1 cm2 LAV(MOD-bp) Indexed: 36.4 ml/m2 LAV(MOD-sp2): 62.5 ml LAV(MOD-sp4): 68.3 ml Time Measurements MV dec time: 0.23 sec Doppler Measurements & Calculations MV E max ajit: 53.1 cm/sec Lat Peak E' Ajit: 10.4 cm/sec Med Peak E' Ajit: 6.8 cm/sec MV A max ajit: 58.8 cm/sec E/E' lat: 5.1 E/E' med: 7.8 MV E/A: 0.90 MV V2 max: 82.5 cm/sec MV P1/2t max ajit: 65.8 cm/sec Ao V2 max: 109.6 cm/sec MV max P.7 mmHg MV P1/2t: 64.1 msec Ao max P.8 mmHg MV V2 mean: 41.5 cm/sec MV dec slope: 300.6 cm/sec2 MV mean P.82 mmHg MVA(P1/2t): 3.4 cm2 MV V2 VTI: 18.2 cm LV V1 max: 103.4 cm/sec PA V2 max: 72.5 cm/sec LV V1 max P.3 mmHg Interpretation Summary Left ventricular systolic function is normal. The estimated ejection fraction is 60 %. The left atrium is mildly enlarged. Mild (1+) mitral valve insufficiency. Trivial tricuspid valve insufficiency. Mild diffuse aortic valve thickening. Trivial pulmonic valve insufficiency. Diastolic function is indeterminate. Ordering Physician: Freida Sullivan Referring Physician: Marilou PCP Performed By: Cameron Collado RCS
[2018-10-12] MEDS: 0.9% Normal Saline 1,000 ML 100 ML IV ×3 (01:16→21:12)
[2018-10-12] MEDS: HYDROcodone Bitartrate/Apap 5/325 Tablet PO (01:41)
--- NOTE | 2018-10-12 05:55 | EKG12_ITS ---
Test Reason : AM EKG Blood Pressure : / mmHG Vent. Rate : 072 BPM Atrial Rate : 072 BPM P-R Int : 120 ms QRS Dur : 096 ms QT Int : 398 ms P-R-T Axes : 070 061 052 degrees QTc Int : 435 ms Normal sinus rhythm Subtle Non-specific ST- Segment Abnormality Confirmed by CYNDI OCASIO, IAN ([id number]), editor school photograph NICANOR MONTOYA ([id number]) on 10/13/2018 8:13:34 AM Referred By: ROSITA Confirmed By:IAN HANNA MD
--- NOTE | 2018-10-12 05:55 | CDU_ITS ---
Reason For Study: Syncope Rt. Velocities/BP Lt. Velocities/BP Prox CCA 72.1/21.3 cm/sec. Prox CCA 86/27.8 cm/sec. Mid CCA 69.5/20 cm/sec. Mid CCA 76.1/21.2 cm/sec. Dist CCA 65.1/17.9 cm/sec. Dist CCA 72.8/25.6 cm/sec. Prox ICA 70.6/33.3 cm/sec. Prox ICA 57.5/22.3 cm/sec. Mid ICA 67.3/30 cm/sec. Mid ICA 73.9/21.2 cm/sec. Dist ICA 91.2/36 cm/sec. Dist ICA 101.4/45.4 cm/sec. Rt. ICA/CCA = 1.3. Lt. ICA/CCA = 1.3. Prox ECA 83.9/17.9 cm/sec. Prox ECA 98.1/19 cm/sec. Rt. Vert. 50.9/17.9 cm/sec. Lt. Vert. 55.3/21.2 cm/sec. Right Extracranial There is intimal thickening but no significant atherosclerotic plaque noted in the right common carotid artery. There is heterogeneous, irregular atherosclerotic plaque noted in the right internal carotid artery. There is intimal thickening but no significant atherosclerotic plaque noted in the right external carotid artery. Antegrade flow is noted in the right vertebral artery. Left Extracranial There is intimal thickening but no significant atherosclerotic plaque noted in the left common carotid artery. There is homogeneous, smooth atherosclerotic plaque noted in the left internal carotid artery. There is heterogeneous, irregular atherosclerotic plaque noted in the left external carotid artery. Antegrade flow is noted in the left vertebral artery. Procedure Carotid Duplex [id number]. Exam performed portable in patient room. Interpretation Summary Mild (<50%) stenosis right extracranial internal carotid. Mild (<50%) stenosis left extracranial internal carotid. Flow within the vertebral arteries is antegrade bilaterally. Ordering Physician: Freida Sullivan Performed By: Megan Calle RVT
[2018-10-12] MEDS: Enoxaparin 40 MG/0.4 ML Syringe SC (06:15)
[2018-10-12 07:28] LABS: Absolute Lymphocyte Count 2.54 X10^3/ul (0.83-4.51); Absolute Neutrophil Count 4.6 X10^3/uL (2.0-7.7); Basophil# 0.03 X10^3/uL; Basophil% 0.4 % (0-1); Eosinophil# 0.13 X10^3/uL; Eosinophils% 1.6 % (0-5); Hematocrit 41.1 % (37-47); Hemoglobin 13.9 g/dl (12.0-15.0); Lymphocyte # 2.54 X10^3/ul (4.0); Lymphocyte % 32.2 % (19-41); Mean Corp Hgb Conc 33.8 g/gl (32-36); Mean Corpuscular Hgb 31.5 pg (27.0-32.0); Mean Corpuscular Volume 93.2 fL (81-99); Mean Platelet Vol. 9.4 fl (6.2-12.0); Monocyte# 0.63 X10^3/uL; Neutrophil # 4.55 X10^3/uL (2.7-7.7); Neutrophil % 57.7 % (47-70); Platelet Count 242 K/mm3 (150-450); RBC Distribution Width SD 43.9 fl (35.1-43.9); Red Blood Count 4.41 M/mm3 (4.2-5.4); White Blood Count 7.9 K/mm3 (4.4-11.0)
[2018-10-12 07:29] LABS: POSITIVE COUNT NO; POSITIVE DIFFERENTIAL NO; POSITIVE MORPHOLOGY NO
[2018-10-12 07:43] LABS: AST(SGOT) 27 U/L (15-37); Alanine Aminotransfer ALT/SGPT 28 U/L (13-56); Albumin, Serum 3.1 g/dL (3.2-5.0); Alkaline Phosphatase 78 U/L (45-117); Anion Gap 10 (5-15); BUN 10 mg/dL (7-18); BUN/Creat Ratio 14.5 RATIO (10-20); Calcium,Total 9.1 mg/dL (8.5-10.1); Chloride 107 mmol/L (98-107); Creatinine, Serum 0.69 mg/dL (0.55-1.02); EST Glomerular Filtration Rate 91 mL/min (>60); Est Glom Filt Rate - Afr Amer 110 mL/min (>60); Estimated Creatinine Clearance 77.11 ml/min; Globulin 3.2 g/dL (2.2-4.2); Glucose 87 mg/dL (74-106); Potassium 3.8 mmol/L (3.5-5.1); Protein, Total 6.3 g/dL (6.4-8.2); Sodium Level 143 mmol/L (136-145)
[2018-10-12] MEDS: Losartan Potassium 25 MG Tablet PO ×2 (09:05→21:12)
[2018-10-12] MEDS: Metoprolol Tartrate 25 MG Tablet PO ×2 (09:05→21:12)
[2018-10-12] MEDS: predniSONE 5 MG Tablet PO (09:05)
[2018-10-12] MEDS: Triamterene 37.5MG/Hctz 25MG Capsule 1 CAP PO (09:05)
[2018-10-12] MEDS: Aspirin E.C. 325 MG Tablet PO (09:05)
[2018-10-12 12:20] LABS: Bilirubin, Direct 0.11 mg/dL (0.00-0.30); Cholesterol 192 mg/dL (200); High Density Lipoprotein 49 mg/dL; Triglycerides 111 mg/dL; Very Low Density Lipoprotein 22 mg/dL (5-40)
[2018-10-12] MEDS: Ibuprofen 400 MG Tablet PO (12:41)
--- NOTE | 2018-10-12 14:08 | PCM.CONS.C ---
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 transplanted heart: eastern [place]osh[place] heart Qualified Code(s): I25.10 - Atherosclerotic heart disease of [place] coronary artery without angina pectoris (3) Cardiomyopathy in other diseases classified elsewhere Status: Chronic (4) Ventricular ectopy Status: Acute (5) Mixed hyperlipidemia Status: Chronic (6) Essential hypertension Status: Chronic Reason for Consult Date of Consultation: 10/12/18 History of Present Illness: The patient is a 63 year old white female with a past cardiovascular history which has included underlying CAD (no previous percutaneous or surgical based revascularization therapy), non-CAD related cardiomyopathy, ventricular ectopy/PVCs, hyperlipidemia, and hypertension who now presents for evaluation of syncope. She states she has not felt well recently with respect to having an upper respiratory tract infection. She may not have been adequately hydrating. During this time she is felt transiently lightheaded. She is denied any concerning chest discomfort or difficulty breathing separate from that related to her upper respiratory tract infection. She states she has had lower extremity myalgias and thus has discontinued her retry of statin therapy area she noted that she had been sitting, got up, was standing, felt somewhat lightheaded and became diaphoretic. She states she may recall to some degree losing consciousness and falling backwards. However, she fell backwards and struck her head. She states immediately after being on the floor she was awake and did not have any associated nausea or emesis or loss of bladder or bowel function. She knew where she was and what was going on. Her event was witnessed and there was no report of obvious seizure-like activity. She subsequently noted that she was bleeding from her head. She realize she needed to present to the emergency department for further evaluation. However before doing such she stated that she took a shower, got cleaned up, etc., and then presented to the emergency department. She underwent evaluation in the emergency department which included a negative cardiac enzyme level. Her ECG demonstrated sinus rhythm with nonspecific ST changes. She also underwent a brain CT scan that demonstrated no acute JUICE SCALEMAN events. Secondary to her fall she did have a scalp related laceration which required closure. She was placed in the hospital for further evaluation and care. Her cardiac enzymes remain negative. Follow-up ECG demonstrated sinus rhythm with nonspecific ST changes which appear to be somewhat less prominent than her previous ECG. A carotid artery duplex study was performed which demonstrated mild disease bilaterally per the report. A transthoracic echocardiogram was performed which demonstrated her overall LV systolic function to remain preserved with an estimated LVEF of 60%. He had no hemodynamically significant appearing valvular heart disease. Her cardiac rhythm has remained sinus rhythm. Separate from this event she has been active. She has not been complaining of ongoing chest discomfort. There is been no orthopnea or PND. She has denied any lower extremity peripheral pitting edema. She has complained of her lower extremity myalgias. She states she has been intolerant to multiple statins. [] Past Medical History Allergies/Adverse Reactions: Allergies atorvastatin [From Lipitor] Adverse Reaction (Severe, Verified 10/11/18 19:17) Myalgias latex Adverse Reaction (Severe, Verified 10/11/18 19:17) Rash lisinopril Adverse Reaction (Severe, Verified 10/11/18 19:17) Caused cough oxycodone Adverse Reaction (Intermediate, Verified 10/11/18 19:17) Nausea & Vomiting GABDOLINIUM Allergy (Uncoded 10/11/18 19:17) Anaphylaxis Home Medications: Ambulatory Orders Medication Instructions Recorded Aspirin E.C. [Ecotrin] 325 mg PO DAILY@0800 03/19/14 Losartan Potassium [Cozaar] 25 mg PO BID 03/19/14 Metoprolol Tartrate [Lopressor 25 mg PO BID 03/19/14 (beta camilla)] Potassium Chloride [K-Dur] 20 meq PO DAILY 03/19/14 Triamterene 37.5MG/Hctz 25MG 1 cap PO DAILY 03/19/14 [Dyazide (G)] vitamins-lipotropics tablet 2 tab PO DAILY 07/08/17 Amoxicillin/Potassium Clav 1 ea PO BID 10/11/18 [Augmentin 875-125 Tablet] Niacin 500 mg PO DAILY 10/11/18 Prednisone 5 mg PO DAILY 10/11/18 Past Medical History (Chronic Problems): Chronic Problems (Last Reviewed 06/28/18 @ 09:37 by Violette Chung) Mixed hyperlipidemia (Chronic) Essential hypertension (Chronic) Atherosclerotic heart disease of [place] coronary artery without angina pectoris (Chronic) Premature ventricular contractions (Chronic) Cardiomyopathy in other diseases classified elsewhere (Chronic) Encounter for long-term (current) use of other medications (Chronic) Surgical History: - - Appendectomy, right knee arthroscopic surgery. 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 history - *Family History Maternal Family History: Family History (Last Reviewed 06/28/18 @ 09:37 by Violette Chung) Father Cancer Brother Hypertension History Items: Cancer, Hypertension Paternal Family History: Family History (Last Reviewed 06/28/18 @ 09:37 by Violette Chung) Father Cancer Brother Hypertension History Items: Hypertension Lives: Spouse/ Significant Other Smoking Status: Current some day smoker Tobacco Use: Cigarettes Alcohol: None Drugs: None Review of Systems - Review of Systems General: Denies: Fever, Night Sweats, Fatigue Cardiovascular: Reports: Palpitations, Near Syncope, Syncope. Denies: Chest Discomfort, Shortness of Breath, Orthopnea, PND, Peripheral Edema, Lightheadedness, Dizziness Respiratory: Denies: Cough, Sputum Production, Hemoptysis Gastrointestinal: Denies: Hematemesis, Hematochezia, Melena Genitourinary: Denies: Dysuria, Hematuria Muscoloskeletal: Reports: Myalgias Skin: Denies: Rash Subjectve: This is a 63-year-old white female who appears to be resting comfortably at the moment in no acute distress. Objective: Vital Signs Temp Pulse Resp BP Pulse Ox 97.9 F 80 14 111/73 94 10/12/18 10:19 10/12/18 10:19 10/12/18 10:19 10/12/18 10:19 10/12/18 10:19 Oxygen Delivery Method Room Air Weight: 204 lb 5.896 oz Body Mass Index (BMI) 33.0 Orthostatic Vital Signs Start: 10/12/18 01:07 Freq: q24h Status: Active Protocol: Activity Type Activity Date Activity User E-Sign Co-Sign Detail Recorded Client Recorded Date Recorded By Document 10/12/18 06:15 AR [id number] 10/12/18 06:23 AR 10/12/18 06:15 Orthostatic Vitals Standing -Blood Pressure (90/60-120/80 mm Hg) 110/76 -Extremity Use Right Arm -Pulse Rate (60-100 beats/min) 101 H Sitting -Blood Pressure (90/60-120/80 mm Hg) 126/78 H -Extremity Use Right Arm -Pulse Rate (60-100 beats/min) 83 Lying -Blood Pressure (90/60-120/80 mm Hg) 127/71 H -Extremity Use Right Arm -Pulse Rate (60-100 beats/min) 68 Intake and Output for Last 24 Hours 10/10/18 10/11/18 10/12/18 23:59 23:59 23:59 Intake Total 1412 / 1412 Balance 1412 / 1412 General: Awake, Alert, Oriented x 3, Cooperative, No Acute Distress HEENT: Normocephalic, PERRL, EOMI Oral: Moist Mucosa Neck: Supple, Good ROM, No JVD Lungs: Clear to auscultation Cardiovascular: Regular Rhythm, Normal S1, Normal S2 Vascular: No Carotid Bruits Abdomen: Bowel Sounds Present, Soft, Non Tender Extremities: No Cyanosis, No Clubbing, No edema Neurological: No Focal Motor or Sensory Deficit Psych/Mental Status: Appropriate 10/11/18 20:20: WBC 14.5 H, RBC 4.88, Hgb 15.2 H, Hct 44.1, MCV 90.4, MCH 31.1, MCHC 34.5, RDW 13.0, RDW Differential 42.6, Plt Count 270, MPV 9.8, Immature Gran % (Auto) 0.300, Neut % (Auto) 80.6 H, Lymph % (Auto) 11.2 L, [place] % (Auto) 7.4, Eos % (Auto) 0.3, Baso % (Auto) 0.2, Absolute Neuts (auto) 11.7 H, Total Counted Not Reportable 10/11/18 20:20: Sodium 135 L, Potassium 3.5, Chloride 102, Carbon Dioxide 24.0, Anion Gap 9, BUN 13, Creatinine 0.85, Est GFR (MDRD) Af Amer 87, Est GFR (MDRD) Non-Af 72, BUN/Creatinine Ratio 15.3, Glucose 104, Calcium 10.0, Troponin I < 0.015 10/12/18 01:10: Magnesium 2.0, Troponin I < 0.015 10/12/18 03:54: Troponin I < 0.015 10/12/18 07:00: WBC 7.9, RBC 4.41, Hgb 13.9, Hct 41.1, MCV 93.2, MCH 31.5, MCHC 33.8, RDW 13.0, RDW Differential 43.9, Plt Count 242, MPV 9.4, Immature Gran % (Auto) 0.100, Neut % (Auto) 57.7, Lymph % (Auto) 32.2, [place] % (Auto) 8.0, Eos % (Auto) 1.6, Baso % (Auto) 0.4, Absolute Neuts (auto) 4.6, Total Counted Not Reportable 10/12/18 07:00: Sodium 143, Potassium 3.8, Chloride 107, Carbon Dioxide 26.0, Anion Gap 10, BUN 10, Creatinine 0.69, Est GFR (MDRD) Af Amer 110, Est GFR (MDRD) Non-Af 91, BUN/Creatinine Ratio 14.5, Glucose 87, Calcium 9.1, Total Bilirubin 0.50, Troponin I < 0.015 10/12/18 07:00: Total Bilirubin Cancelled, Direct Bilirubin 0.11, Triglycerides 111, Cholesterol 192, LDL Cholesterol 121, VLDL Cholesterol 22, HDL Cholesterol 49 Rhythm: Sinus rhythm EKG: As noted above ECHO: Left ventricular systolic function normal with an estimated LV of 60%; mild left atrial enlargement; mild MR; trivial TR; mild diffuse aortic valve thickening; trivial ID; diastolic function indeterminate Stress Test: 09-18-10: Conclusion reported as: Moderate exercise tolerance achieving a workload of 7 METS; no chest discomfort to suggest angina elicited with stress; resting electric cardiogram demonstrating sinus rhythm with occasional PVCs and nonspecific ST changes; electric cardiogram with stress demonstrating sinus tachycardia with frequent PVCs and bigeminy at peak stress with inferolateral ST depression suspicious for ischemia; nuclear images demonstrate a subtle reversible anterior perfusion defect developing with stress equivocal for inducible ischemia with a gated LVEF of 45% Cardiac Cath: 09-19-10: [facility]: [place], [place] Borderline significant mid LAD stenosis in the range of 40 to 50% which was reported as not appearing hemodynamically significant and multiple views; normal LCx; normal RCA: Left ventricle globally hypokinetic with an LVEF of 40 to 45% Ultra monitor: 12-13-10: 24-hour Holter monitor with an average heart rate of 81 bpm with a minimal heart rate of 52 bpm and a maximal heart rate of 133 bpm with rare PACs and no narrow complex runs and rare PVCs with ventricular couplets as well as ventricular bigeminy/trigeminy and no wide-complex runs; no symptoms reported CXR: Preliminary evaluation: No acute cardiopulmonary disease process: Please see official report Assessment/Plan . Syncope The patient had a syncopal event. The etiology is unclear although based upon her recent illness and her positional change this may have been an orthostatic and/or vagally mediated type of event. It is not clear at this time that it is related to an underlying cardiac dysrhythmia, however, she is being monitored for such. There has been no other new symptoms suggestive of classic angina pectoris or classic CHF/pulmonary edema. The patient's cardiac enzymes have remained negative thus far. The ECG has demonstrated nonspecific ST changes which were somewhat more prominent on admission than on repeat. The patient has been evaluated for peripheral vascular disease with no hemodynamically significant appearing carotid artery disease based upon her carotid artery duplex study. Her brain CT scan did not report any acute JUICE SCALEMAN events. From a cardiac standpoint she will continue to be monitored. She is receiving IV fluids. It would not be unreasonable noting her history of underlying cardiovascular disease/CAD that she be considered for further evaluation for the possibility of progression of CAD and myocardial ischemia that may contribute to cardiac dysrhythmias, etc., that could lead to syncopal events with an exercise tolerance test/imaging study. At this time this would be considered to be a pharmacologic stress nuclear imaging study. If her course is unremarkable then it may not be unreasonable as an outpatient to consider continued outpatient ambulatory monitoring such as a 30-day ambulatory event monitor to look for any obvious cardiac dysrhythmias or conduction system events that may contribute to her recent syncopal event. 2. CAD She does have a history of CAD as noted above. She does need to continue risk factor modification and care as deemed appropriate. She will need to continue medical management as deemed appropriate. In the meantime she will undergo further evaluation as noted above. 3. Cardiomyopathy She has a history of a cardiomyopathy thought out of proportion to her CAD. This is been reassessed with a transthoracic echocardiogram. Her overall LV systolic function appears to remain preserved. She will need to continue medical management and follow-up as deemed appropriate. 4. Cardiac ectopy She does have a history of PACs and PVCs. It is unclear whether this participated in her event. Thus she is being monitored. Again she may need continued outpatient ambulatory monitoring to look for any obvious cardiac dysrhythmias that require further evaluation and care. 5. Hyperlipidemia She has been intolerant to multiple statins. However she states she may be amenable to retrying a statin at a low dose on an every other day basis. This will be considered. 6. Hypertension Her blood pressures are being followed. Her medications can be adjusted as needed. Comment: The above was discussed and reviewed with the patient and her spouse. They are agreeable to this approach. This note was generated with [employer] software. It may contain incorrect words, spelling, and punctuation that were not noted in checking the note before signing.
--- NOTE | 2018-10-12 15:28 | PCM.PN.HOSP ---
Patient Problems: Active and Suspected Problems (Last Reviewed 06/28/18 @ 09:37 by Violette Chung) Syncope and collapse (Acute) Subjective: Patient was seen and examined. Complains of headache at the back of the head and the neck. Denies any dizziness or palpitation. No acute events on telemetry. Vitals/I&O's: Vital Signs Temp Pulse Resp BP Pulse Ox 97.9 F 80 14 111/73 94 10/12/18 10:19 10/12/18 10:19 10/12/18 10:19 10/12/18 10:10/12/18 10:19 Oxygen Delivery Method Room Air Weight: 92.7 kg Body Mass Index (BMI) 33.0 Orthostatic Vital Signs Start: 10/12/18 01:07 Freq: q24h Status: Active Protocol: Activity Type Activity Date Activity User E-Sign Co-Sign Detail Recorded Client Recorded Date Recorded By Document 10/12/18 06:15 AR [id number] 10/12/18 06:23 AR 10/12/18 06:15 Orthostatic Vitals Standing -Blood Pressure (90/60-120/80) 110/76 -Extremity Use Right Arm -Pulse Rate (60-100) 101 H Sitting -Blood Pressure (90/60-120/80) 126/78 H -Extremity Use Right Arm -Pulse Rate (60-100) 83 Lying -Blood Pressure (90/60-120/80) 127/71 H -Extremity Use Right Arm -Pulse Rate (60-100) 68 Intake and Output for Last 24 Hours 10/10/18 10/11/18 10/12/18 23:59 23:59 23:59 Intake Total 1412 / 1412 Balance 1412 / 1412 General: Alert, Oriented x3, Cooperative, No apparent distress HEENT: Atraumatic, PERRLA, EOMI, Normocephalic, - - Laceration at the back of the head, stapled, slight bleeding at the site. Oral: Moist Mucosa Neck: Supple Lungs: Clear to auscultation, Normal air movement Cardiovascular: Regular rate, Regular Rhythm, Normal S1, Normal S2, No murmurs Abdomen: Bowel Sounds Present, Soft, Non Tender, Non-Distended, No Hepato-splenomegaly Extremities: No edema Skin: No rashes, No breakdown Musculoskeletal: No Tenderness to Palpation of Joints or Extremities Lymphatic: No Cervical, Supraclavicular, or Inguinal Adenopathy Neurological: Cranial nerves II-XII grossly intact, Neuro grossly intact Psych/Mental Status: Normal Affect, Appropriate Laboratory Results 10/11/18 20:20: WBC 14.5 H, RBC 4.88, Hgb 15.2 H, Hct 44.1, MCV 90.4, MCH 31.1, MCHC 34.5, RDW 13.0, RDW Differential 42.6, Plt Count 270, MPV 9.8, Immature Gran % (Auto) 0.300, Neut % (Auto) 80.6 H, Lymph % (Auto) 11.2 L, [place] % (Auto) 7.4, Eos % (Auto) 0.3, Baso % (Auto) 0.2, Absolute Neuts (auto) 11.7 H, Absolute Lymphs (auto) 1.63, Total Counted Not Reportable 10/11/18 20:20: Sodium 135 L, Potassium 3.5, Chloride 102, Carbon Dioxide 24.0, Anion Gap 9, BUN 13, Creatinine 0.85, Estim Creat Clear Calc 62.59, Est GFR (MDRD) Af Amer 87, Est GFR (MDRD) Non-Af 72, BUN/Creatinine Ratio 15.3, Glucose 104, Calcium 10.0, Troponin I < 0.015 10/12/18 01:10: Magnesium 2.0, Troponin I < 0.015, TSH 1.30 10/12/18 03:54: Troponin I < 0.015 10/12/18 07:00: WBC 7.9, RBC 4.41, Hgb 13.9, Hct 41.1, MCV 93.2, MCH 31.5, MCHC 33.8, RDW 13.0, RDW Differential 43.9, Plt Count 242, MPV 9.4, Immature Gran % (Auto) 0.100, Neut % (Auto) 57.7, Lymph % (Auto) 32.2, [place] % (Auto) 8.0, Eos % (Auto) 1.6, Baso % (Auto) 0.4, Absolute Neuts (auto) 4.6, Absolute Lymphs (auto) 2.54, Total Counted Not Reportable 10/12/18 07:00: Sodium 143, Potassium 3.8, Chloride 107, Carbon Dioxide 26.0, Anion Gap 10, BUN 10, Creatinine 0.69, Estim Creat Clear Calc 77.11, Est GFR (MDRD) Af Amer 110, Est GFR (MDRD) Non-Af 91, BUN/Creatinine Ratio 14.5, Glucose 87, Calcium 9.1, Total Bilirubin 0.50, AST 27, ALT 28, Alkaline Phosphatase 78, Troponin I < 0.015, Total Protein 6.3 L, Albumin 3.1 L, Globulin 3.2, Albumin/Globulin Ratio 1.0 10/12/18 07:00: Total Bilirubin Cancelled, Direct Bilirubin 0.11, AST Cancelled, ALT Cancelled, Alkaline Phosphatase Cancelled, Total Protein Cancelled, Albumin Cancelled, Globulin Cancelled, Triglycerides 111, Cholesterol 192, LDL Cholesterol 121, VLDL Cholesterol 22, HDL Cholesterol 49 Current Medications Acetaminophen (Tylenol) 650 mg PO Q6H PRN PRN PRN Reason: Non-cardiac pain (mod-severe) Hydrocodone Bitart/Acetaminophen ([place] 5mg-325mg) 1 - 2 tablet PO Q6H PRN PRN PRN Reason: MOD-SEVERE PAIN (4-10/10) Last Admin: 10/12/18 01:41 Dose: 1 tablet Documented by: Al Hydroxide/Mg Hydroxide (Mylanta Ii) 15 - 30 ml PO Q4H PRN PRN PRN Reason: INDIGESTION Albuterol Sulfate (Ventolin Aerosols) 2.5 mg INHALATION Q2H PRN PRN PRN Reason: dyspnea, wheezing Aspirin (Ecotrin) 325 mg PO DAILY@0800 [facility] Last Admin: 10/12/18 09:05 Dose: 325 mg Documented by: Dextrose (D50w Syringe) 0 gm IV X1 PRN; Protocol PRN Reason: Hypoglycemia Enoxaparin Sodium (Lovenox) 40 mg SC DAILY@0600 [facility] Last Admin: 10/12/18 06:15 Dose: 40 mg Documented by: Glucagon () 1 mg IM .X1 PRN PRN Reason: Hypoglycemia Hydralazine HCl (Apresoline Iv) 10 mg IV Q4H PRN PRN PRN Reason: SBP > 160 Sodium Chloride () 1,000 mls @ 100 mls/hr IV .Q10H [facility] Last Admin: 10/12/18 10:16 Dose: 100 mls/hr Documented by: Ibuprofen (Motrin) 400 mg PO Q6H PRN PRN PRN Reason: MILD PAIN (1-3/10) Last Admin: 10/12/18 12:41 Dose: 400 mg Documented by: Lorazepam (Ativan) 0.5 mg PO Q4H PRN PRN PRN Reason: ANXIETY Losartan Potassium (Cozaar) 25 mg PO BID [facility] Last Admin: 10/12/18 09:05 Dose: 25 mg Documented by: Melatonin (Melatonin) 3 mg PO QHS PRN PRN PRN Reason: INSOMNIA Metoprolol Tartrate (Lopressor (Beta Stephanie)) 25 mg PO BID [facility] Last Admin: 10/12/18 09:05 Dose: 25 mg Documented by: Morphine Sulfate () 1 - 2 mg IV Q4H PRN PRN PRN Reason: PAIN Nicotine Polacrilex ([place]ugby Nicotine (Pbkc)) 4 mg PO Q2H PRN PRN PRN Reason: Nicotine Craving Nitroglycerin (Nitrostat) 0.4 mg SUBLINGUAL Q5M PRN PRN Reason: CARDIAC/CHEST PAIN Ondansetron HCl (Zofran) 4 mg IV Q8H PRN PRN PRN Reason: NAUSEA/VOMITING Potassium Chloride (K-Dur) 20 meq PO DAILY [facility] Last Admin: 10/12/18 09:05 Dose: 20 meq Documented by: [facility] () [facility] Last Admin: 10/12/18 09:05 Dose: 5 mg Documented by: Sodium Chloride () 5 - 15 ml IV UD PRN PRN Reason: SALINE FLUSH Triamterene/HCTZ (Dyazide (G)) 1 cap PO DAILY [facility] Last Admin: 10/12/18 09:05 Dose: 1 cap Documented by: Medical Necessity - Tobacco Use Smoking Status: Current some day smoker Tobacco Use: Cigarettes Assessment/Plan All Active Problems (Last Reviewed 06/28/18 @ 09:37 by Violette Chung) Syncope and collapse (Acute) Ventricular ectopy (Acute) 63-year-old with past medical history of CAD, hypertension, hyperlipidemia who comes in after recent upper respiratory illness with a syncopal episode. Patient admits that she has had a similar episode 8 years ago and was said to be vasovagal. She had a laceration to the occiput which was stapled in the emergency department. 1. Syncopal episode, following recent illness with laceration to occiput, unclear etiology, EKG is unremarkable, telemetry is unremarkable, 2D echo shows EF of 60%, no abnormalities. Appreciate cardiology consult, recommended stress test. Mildly orthostatic by heart rate, continue on IV fluids. 2. Laceration to occiput s/p xavier, wound RN consulted 3. Hypertension/hyperlipidemia/CAD, stable for now continue on home regimen 4. DVT PPx- Lovenox SC Code Visit Inpatient E&M: 34614 Subs Hosp L2
[2018-10-12] MEDS: Acetaminophen 325 MG Tablet 650 MG PO (19:54)
[2018-10-13] VITALS (10 sets, daily range): BP systolic 122–155; BP diastolic 69–97; PULSE 62–86; RESP 16–18; TEMP 36.4–36.8; O2SAT 95–100
[2018-10-13] MEDS: Aspirin E.C. 325 MG Tablet PO (05:43)
[2018-10-13] MEDS: Losartan Potassium 25 MG Tablet PO (05:43)
--- NOTE | 2018-10-13 05:55 | EKG12_ITS ---
Test Reason : Blood Pressure : / mmHG Vent. Rate : 073 BPM Atrial Rate : 073 BPM P-R Int : 126 ms QRS Dur : 094 ms QT Int : 388 ms P-R-T Axes : 059 058 046 degrees QTc Int : 427 ms Normal sinus rhythm Nonspecific ST abnormality Abnormal ECG When compared with ECG of 12-OCT-2018 04:47, MANUAL COMPARISON REQUIRED, DATA IS UNCONFIRMED Confirmed by GREY GREENBERG ([id number]), city editor NICANOR MONTOYA ([id number]) on 10/13/2018 2:18:56 PM Referred By: Confirmed By:GREY GREENBERG
[2018-10-13 05:56] LABS: Absolute Lymphocyte Count 2.47 X10^3/ul (0.83-4.51); Absolute Neutrophil Count 5.1 X10^3/uL (2.0-7.7); Basophil# 0.02 X10^3/uL; Basophil% 0.2 % (0-1); Eosinophil# 0.17 X10^3/uL; Hematocrit 44.6 % (37-47); Hemoglobin 14.6 g/dl (12.0-15.0); Lymphocyte # 2.47 X10^3/ul (4.0); Lymphocyte % 29.4 % (19-41); Mean Corp Hgb Conc 32.7 g/gl (32-36); Mean Corpuscular Hgb 31.2 pg (27.0-32.0); Mean Corpuscular Volume 95.3 fL (81-99); Mean Platelet Vol. 9.8 fl (6.2-12.0); Monocyte# 0.57 X10^3/uL; Monocyte% 6.8 % (0-10); Neutrophil # 5.14 X10^3/uL (2.7-7.7); Neutrophil % 61.4 % (47-70); Platelet Count 252 K/mm3 (150-450); RBC Distribution Width CV 13.3 % (11.6-14.6); RBC Distribution Width SD 45.7 fl (35.1-43.9); Red Blood Count 4.68 M/mm3 (4.2-5.4); White Blood Count 8.4 K/mm3 (4.4-11.0)
[2018-10-13 06:04] LABS: POSITIVE COUNT NO; POSITIVE DIFFERENTIAL NO; POSITIVE MORPHOLOGY NO
[2018-10-13 06:12] LABS: Anion Gap 7 (5-15); BUN 11 mg/dL (7-18); BUN/Creat Ratio 15.3 RATIO (10-20); Calcium,Total 9.4 mg/dL (8.5-10.1); Chloride 107 mmol/L (98-107); Creatinine, Serum 0.72 mg/dL (0.55-1.02); EST Glomerular Filtration Rate 87 mL/min (>60); Est Glom Filt Rate - Afr Amer 105 mL/min (>60); Glucose 83 mg/dL (74-106); Potassium 3.9 mmol/L (3.5-5.1); Sodium Level 142 mmol/L (136-145)
[2018-10-13 06:25] LABS: International Normalized Ratio 0.9; Prothrombin Time (Protime)PT. 12.4 SECONDS (11.7-14.9)
[2018-10-13 06:26] LABS: Partial Thromboplast Time 27.8 Seconds (24.1-36.2)
[2018-10-13] MEDS: predniSONE 5 MG Tablet PO (08:50)
[2018-10-13] MEDS: Metoprolol Tartrate 25 MG Tablet PO (08:50)
[2018-10-13] MEDS: Triamterene 37.5MG/Hctz 25MG Capsule 1 CAP PO (08:50)
--- NOTE | 2018-10-13 09:33 | STRESSREP ---
Stress Test Report Date: 10-13-18 Procedure: Pharmacologic stress nuclear imaging study Indications: Syncope; CAD: PVCs Consent: Per the patient Procedure: The patient underwent pharmacologic (Regadenoson) evaluation with a peak heart rate of 106 beats per minute (67 %predicted maximal heart rate) and a peak blood pressure of 142/76 mmHg. The baseline ECG demonstrated normal sinus rhythm; nonspecific ST segment abnormality. The peak pharmacologic ECG demonstrated continued nonspecific ST segment abnormality. There was a rare PVC during recovery. There was no complaint of chest discomfort during pharmacologic infusion or recovery. The examination was discontinued secondary to completion of protocol. Impression: 1. Pharmacologic (Regadenoson) evaluation 2. Peak pharmacologic ECG with continued nonspecific ST segment abnormality. 3. There was a rare PVC during recovery. 4. Nuclear images pending Myocardial perfusion imaging study: Technique: The patient was injected with 11.8 millicuries of technetium 99m Cardiolite and subsequently rest SPECT Cardiolite nuclear imaging was obtained in the horizontal long, vertical long, and short axis views. The patient underwent pharmacologic (Regadenoson) evaluation with a peak heart rate of 106 beats per minute (67 % percent predicted maximal heart rate) and a peak blood pressure of 142/76 mmHg. The patient was injected with 34.2 millicuries of technetium 99m Cardiolite and subsequently stress SPECT Cardiolite nuclear imaging was obtained in the horizontal long, vertical long, and short axis views. A gated Cardiolite study at peak stress was obtained. Interpretation: Rest and stress SPECT Cardiolite nuclear imaging status post realignment, normalization, and attenuation correction demonstrate relative uniform tracer uptake and myocardial perfusion appearing within normal limits. There is end systolic thickening and brightening. The gated Cardiolite study demonstrates myocardial thickening and inward wall motion. The reported LVEF is 64 %. Impression: 1. Rest and stress SPECT Cardiolite nuclear imaging demonstrate relative uniform tracer uptake and myocardial perfusion appearing within normal limits. 2. The gated Cardiolite study reports an LVEF of 64 %. This note was generated with [employer] software. It may contain incorrect words, spelling, and punctuation that were not noted in checking the note before signing.
[2018-10-13] MEDS: 0.9% Normal Saline 1,000 ML 100 ML IV (09:52)
--- NOTE | 2018-10-13 12:04 | DCINST_ITS ---
- Discharge Diagnoses Current Active Problems: Current Active and Chronic Problems (Last Reviewed 06/28/18 @ 09:37 by Violette Chung) Syncope and collapse (Acute) Reason(s) for Visit for Discharge Instructions: Syncope You will use the following diet at home:: Cardiac Your food should be the consistency of: Regular Your liquids should be the consistency of: Regular/Thin Discharge Activity: Return to Normal Activity Weight Bearing Status: Weight bearing as tolerated Additional Instructions: You will be discharged with a 30-day event monitor. Follow-up with your primary neurologist within 2 weeks. You need to see your primary doctor within 1-2 weeks. Your xavier for your head laceration should be taken out in 1 week. Continue to hydrate yourself. Continue to remain active. Follow a low salt, low fat diet. Allergies/Adverse Reactions: Allergies atorvastatin [From Lipitor] Adverse Reaction (Severe, Verified 10/11/18 19:17) Myalgias latex Adverse Reaction (Severe, Verified 10/11/18 19:17) Rash lisinopril Adverse Reaction (Severe, Verified 10/11/18 19:17) Caused cough oxycodone Adverse Reaction (Intermediate, Verified 10/11/18 19:17) Nausea & Vomiting GABDOLINIUM Allergy (Uncoded 10/11/18 19:17) Anaphylaxis Medications to take at Discharge Aspirin E.C. [Ecotrin] 325 mg PO DAILY@0800 03/19/14 Losartan Potassium [Cozaar] 25 mg PO BID 03/19/14 Metoprolol Tartrate [Lopressor (beta camilla)] 25 mg PO BID 03/19/14 Potassium Chloride [K-Dur] 20 meq PO DAILY 03/19/14 Triamterene 37.5MG/Hctz 25MG [Dyazide (G)] 1 cap PO DAILY 03/19/14 vitamins-lipotropics tablet 2 tab PO DAILY 07/08/17 Niacin 500 mg PO DAILY 10/11/18 Prednisone 5 mg PO DAILY 10/11/18 Orders to be completed after discharge: 30 Day Event Recorder Hook-Up [[facility]] Location: None Selected Primary Care Physician: Care Physician,No Primary [Primary Care Provider] - Please follow up with your Primary Care Physician in: WITHIN 1-2 WEEKS Test Results: Test results from this visit will be discussed in further detail at your follow- up appointment, if applicable. Please Follow Up With: Prince Alvarez MD When: within 2 weeks Proposed Discharge Date: 10/13/18
--- NOTE | 2018-10-13 12:06 | DS.PCM_ITS ---
Discharge Date and Diagnosis Date of Admission: 10/11/18 Date of Discharge: 10/13/18 - Primary Discharge Diagnosis Active and Suspected Problems (Last Reviewed 06/28/18 @ 09:37 by Violette Chung) Syncope and collapse (Acute) Duration of the head status post suturing - Secondary Discharge Diagnosis Chronic Problems (Last Reviewed 06/28/18 @ 09:37 by Violette Chung) Mixed hyperlipidemia (Chronic) Essential hypertension (Chronic) Atherosclerotic heart disease of [place] coronary artery without angina pectoris (Chronic) Premature ventricular contractions (Chronic) Cardiomyopathy in other diseases classified elsewhere (Chronic) Encounter for long-term (current) use of other medications (Chronic) Hospital Course and Treatment Imaging Results: 10/13/18 05:55 Nuclear Stress Test - Chemical [NM] AM (NON MEDS) Consultations 10/12/18 11:51 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 Patient admits that she has had a similar episode 8 years ago and was said to be vasovagal. She had a laceration to the occiput which was stapled in the emergency department. Patient is admitted blood work was unremarkable. EKG was unremarkable. No findings on telemetry. 2D echo shows EF of 60%, no abnormalities. Cardiology was consulted, recommend a stress test which was negative. She had laceration to occiput s/p eleanor, wound RN consulted, dry dressing recommended. Eleanor to be removed in 7 days Patient was discharged in a stable state. Subjective: On the day of discharge, patient was seen and examined. She had a stress test that was negative. Denied any new complaints. Headaches is improved. Objective: Physical exam: General: Alert, Oriented x3, Cooperative, No apparent distress HEENT: Atraumatic, PERRLA, EOMI, Normocephalic, - - Laceration at the back of the head, stapled, slight bleeding at the site. Oral: Moist Mucosa Neck: Supple Lungs: Clear to auscultation, Normal air movement Cardiovascular: Regular rate, Regular Rhythm, Normal S1, Normal S2, No murmurs Abdomen: Bowel Sounds Present, Soft, Non Tender, Non-Distended, No Hepato- splenomegaly Extremities: No edema Skin: No rashes, No breakdown Musculoskeletal: No Tenderness to Palpation of Joints or Extremities Lymphatic: No Cervical, Supraclavicular, or Inguinal Adenopathy Neurological: Cranial nerves II-XII grossly intact, Neuro grossly intact Psych/Mental Status: Normal Affect, Appropriate - Physical Exam Vital Signs Temp Pulse Resp BP Pulse Ox 97.5 F L 76 18 135/70 H 100 10/13/18 08:46 10/13/18 08:50 10/13/18 08:46 10/13/18 08:50 10/13/18 08:46 Oxygen Delivery Method Room Air Weight: 92.7 kg Body Mass Index (BMI) 33.0 Orthostatic Vital Signs Start: 10/12/18 01:07 Freq: q24h Status: Active Protocol: Activity Type Activity Date Activity User E-Sign Co-Sign Detail Recorded Client Recorded Date Recorded By Document 10/13/18 00:07 [facility] [id number] 10/13/18 00:12 [facility] 10/13/18 00:07 Orthostatic Vitals Standing -Blood Pressure (90/60-120/80 mm Hg) 150/88 H -Extremity Use Left Arm -Pulse Rate (60-100 beats/min) 79 Sitting -Blood Pressure (90/60-120/80 mm Hg) 155/97 H -Extremity Use Left Arm -Pulse Rate (60-100 beats/min) 71 Lying -Blood Pressure (90/60-120/80 mm Hg) 152/88 H -Extremity Use Left Arm -Pulse Rate (60-100 beats/min) 69 Intake and Output for Last 24 Hours 10/11/18 10/12/18 10/13/18 23:59 23:59 23:59 Intake Total 3747 / 3747 1463 / 1463 Balance 3747 / 3747 1463 / 1463 Laboratory Tests Past 24 Hrs 10/12/18 10/13/18 10/13/18 07:00 05:20 05:20 WBC 8.4 RBC 4.68 Hgb 14.6 Hct 44.6 MCV 95.3 MCH 31.2 MCHC 32.7 RDW 13.3 RDW Differential 45.7 H Plt Count 252 MPV 9.8 Immature Gran % (Auto) 0.200 Neut % (Auto) 61.4 Lymph % (Auto) 29.4 Denali % (Auto) 6.8 Eos % (Auto) 2.0 Baso % (Auto) 0.2 Absolute Neuts (auto) 5.1 Absolute Lymphs (auto) 2.47 Total Counted Not Reportable PT 12.4 INR 0.9 APTT 27.8 Sodium Potassium Chloride Carbon Dioxide Anion Gap BUN Creatinine Estim Creat Clear Calc Est GFR (MDRD) Af Amer Est GFR (MDRD) Non-Af BUN/Creatinine Ratio Glucose Calcium Total Bilirubin Cancelled Direct Bilirubin 0.11 AST Cancelled ALT Cancelled Alkaline Phosphatase Cancelled Total Protein Cancelled Albumin Cancelled Globulin Cancelled Triglycerides 111 Cholesterol 192 LDL Cholesterol 121 VLDL Cholesterol 22 HDL Cholesterol 49 10/13/18 05:20 WBC RBC Hgb Hct MCV MCH MCHC RDW RDW Differential Plt Count MPV Immature Gran % (Auto) Neut % (Auto) Lymph % (Auto) Denali % (Auto) Eos % (Auto) Baso % (Auto) Absolute Neuts (auto) Absolute Lymphs (auto) Total Counted PT INR APTT Sodium 142 Potassium 3.9 Chloride 107 Carbon Dioxide 28.0 Anion Gap 7 BUN 11 Creatinine 0.72 Estim Creat Clear Calc 73.90 Est GFR (MDRD) Af Amer 105 Est GFR (MDRD) Non-Af 87 BUN/Creatinine Ratio 15.3 Glucose 83 Calcium 9.4 Total Bilirubin Direct Bilirubin AST ALT Alkaline Phosphatase Total Protein Albumin Globulin Triglycerides Cholesterol LDL Cholesterol VLDL Cholesterol HDL Cholesterol Discharge Diet: Low fat/ Low Cholesterol, 2000 mg Sodium Diet Discharge Activity: Return to Normal Activity Weight Bearing Status: Weight bearing as tolerated Home Medications: Medications to take at Discharge Aspirin E.C. [Ecotrin] 325 mg PO DAILY@0800 03/19/14 Losartan Potassium [Cozaar] 25 mg PO BID 03/19/14 Metoprolol Tartrate [Lopressor (beta camilla)] 25 mg PO BID 03/19/14 Potassium Chloride [K-Dur] 20 meq PO DAILY 03/19/14 Triamterene 37.5MG/Hctz 25MG [Dyazide (G)] 1 cap PO DAILY 03/19/14 vitamins-lipotropics tablet 2 tab PO DAILY 07/08/17 Niacin 500 mg PO DAILY 10/11/18 Prednisone 5 mg PO DAILY 10/11/18 Other Amb Orders: 30 Day Event Recorder Hook-Up [[facility]] Location: None Selected Primary Care Physician: Care Physician,No Primary [Primary Care Provider] - Please follow up with your Primary Care Physician in: WITHIN 1-2 WEEKS Please Follow Up With: Prince Alvarez MD When: within 2 weeks Disposition: Home Minutes spent on discharge:: 45 Patient Condition:: Stable Medical Necessity - Tobacco Use Smoking Status: Current some day smoker Tobacco Use: Cigarettes Meaningful Use Info Meaningful Use Diagnoses (Choose all that apply): None applicable Code Visit Inpatient E&M: 67920 Disch Hosp
--- NOTE | 2018-10-13 17:34 | PN.CARD_ITS ---
Subjectve: The patient was evaluated earlier this morning. She appeared without any acute symptoms at that time of ongoing chest discomfort or difficulty breathing. There was no obvious episodes of overt CHF or pulmonary edema. There was no concerns of palpitation or rapid rates. She had no episodes of recurrent near syncope or syncope. Objective: Vital Signs Temp Pulse Resp BP Pulse Ox 98.0 F 86 16 122/69 H 96 10/13/18 13:15 10/13/18 13:15 10/13/18 13:15 10/13/18 13:15 10/13/18 13:15 Oxygen Delivery Method Room Air Weight: 204 lb 5.896 oz Body Mass Index (BMI) 33.0 Intake and Output for Last 24 Hours 10/11/18 10/12/18 10/13/18 23:59 23:59 23:59 Intake Total 3747 / 3747 1463 / 1463 Balance 3747 / 3747 1463 / 1463 General: Awake, Alert, Oriented x 3, Cooperative, No Acute Distress HEENT: Normocephalic, PERRL, EOMI, Sclera Non Icteric Oral: Moist Mucosa Neck: Supple, Good ROM, No JVD Lungs: Clear to auscultation Cardiovascular: Regular Rhythm, Normal S1, Normal S2 Abdomen: Bowel Sounds Present, Soft, Non Tender Extremities: No edema Neurological: No Focal Motor or Sensory Deficit Psych/Mental Status: Appropriate 10/13/18 05:20: WBC 8.4, RBC 4.68, Hgb 14.6, Hct 44.6, MCV 95.3, MCH 31.2, MCHC 32.7, RDW 13.3, RDW Differential 45.7 H, Plt Count 252, MPV 9.8, Immature Gran % (Auto) 0.200, Neut % (Auto) 61.4, Lymph % (Auto) 29.4, [place] % (Auto) 6.8, Eos % (Auto) 2.0, Baso % (Auto) 0.2, Absolute Neuts (auto) 5.1, Total Counted Not Reportable 10/13/18 05:20: PT 12.4, INR 0.9, APTT 27.8 10/13/18 05:20: Sodium 142, Potassium 3.9, Chloride 107, Carbon Dioxide 28.0, Anion Gap 7, BUN 11, Creatinine 0.72, Est GFR (MDRD) Af Amer 105, Est GFR (MDRD) Non-Af 87, BUN/Creatinine Ratio 15.3, Glucose 83, Calcium 9.4 Rhythm: Sinus rhythm Stress test: Stress Test Report Date: 10-13-18 Procedure: Pharmacologic stress nuclear imaging study Indications: Syncope; CAD: PVCs Consent: Per the patient Procedure: The patient underwent pharmacologic (Regadenoson) evaluation with a peak heart rate of 106 beats per minute (67 %predicted maximal heart rate) and a peak blood pressure of 142/76 mmHg. The baseline ECG demonstrated normal sinus rhythm; nonspecific ST segment abnormality. The peak pharmacologic ECG demonstrated continued nonspecific ST segment abnormality. There was a rare PVC during recovery. There was no complaint of chest discomfort during pharmacologic infusion or recovery. The examination was discontinued secondary to completion of protocol. Impression: 1. Pharmacologic (Regadenoson) evaluation 2. Peak pharmacologic ECG with continued nonspecific ST segment abnormality. 3. There was a rare PVC during recovery. 4. Nuclear images pending Myocardial perfusion imaging study: Technique: The patient was injected with 11.8 millicuries of technetium 99m Cardiolite and subsequently rest SPECT Cardiolite nuclear imaging was obtained in the horizontal long, vertical long, and short axis views. The patient underwent pharmacologic (Regadenoson) evaluation with a peak heart rate of 106 beats per minute (67 % percent predicted maximal heart rate) and a peak blood pressure of 142/76 mmHg. The patient was injected with 34.2 millicuries of technetium 99m Cardiolite and subsequently stress SPECT Cardiolite nuclear imaging was obtained in the horizontal long, vertical long, and short axis views. A gated Cardiolite study at peak stress was obtained. Interpretation: Rest and stress SPECT Cardiolite nuclear imaging status post realignment, normalization, and attenuation correction demonstrate relative uniform tracer uptake and myocardial perfusion appearing within normal limits. There is end systolic thickening and brightening. The gated Cardiolite study demonstrates myocardial thickening and inward wall motion. The reported LVEF is 64 %. Impression: 1. Rest and stress SPECT Cardiolite nuclear imaging demonstrate relative uniform tracer uptake and myocardial perfusion appearing within normal limits. 2. The gated Cardiolite study reports an LVEF of 64 %. Medical Necessity - Tobacco Use Smoking Status: Current some day smoker Tobacco Use: Cigarettes Assessment/Plan . Syncope The patient had a syncopal event. The etiology is unclear although based upon her recent illness and her positional change this may have been an orthostatic and/or vagally mediated type of event. It is not clear at this time that it is related to an underlying cardiac dysrhythmia, however, she is being monitored for such. There has been no other new symptoms suggestive of classic angina pectoris or classic CHF/pulmonary edema. The patient's cardiac enzymes have remained negative thus far. The ECG has demonstrated nonspecific ST changes which were somewhat more prominent on admission than on repeat. The patient has been evaluated for peripheral vascular disease with no hemodynamically significant appearing carotid artery disease based upon her carotid artery duplex study. Her brain CT scan did not report any acute [employer] events. The patient underwent further evaluation with a pharmacologic nuclear imaging study. It was considered negative. At the present time would be recommended the patient continue with fluid support. Also would be recommended she have further outpatient cardiovascular follow-up with a 30-day ambulatory event monitor to continue to monitor for any obvious cardiac dysrhythmias that may be contributing to her events. 2. CAD She does have a history of CAD as noted above. She does need to continue risk factor modification and care as deemed appropriate. She will need to continue medical management as deemed appropriate. In the meantime she will undergo further evaluation as noted above. 3. Cardiomyopathy She has a history of a cardiomyopathy thought out of proportion to her CAD. This is been reassessed with a transthoracic echocardiogram. Her overall LV systolic function appears to remain preserved. She will need to continue medical management and follow-up as deemed appropriate. 4. Cardiac ectopy She does have a history of PACs and PVCs. It is unclear whether this participated in her event. Thus she is being monitored. She will continue evaluation as noted above. 5. Hyperlipidemia She has been intolerant to multiple statins. However she states she may be amenable to retrying a statin at a low dose on an every other day basis. This will be considered. 6. Hypertension Her blood pressures are being followed. Her medications can be adjusted as needed. This note was generated with [employer] software. It may contain incorrect words, spelling, and punctuation that were not noted in checking the note before signing.
== END 2018-10-13 13:49 | disposition home or self-care (01) ==
LOC: ED 20:12 → PCU 10-12 00:14
PROVIDERS: Internal Medicine Cardiovascular Disease; Admitting Provider Family Medicine; Emergency Provider Emergency Medicine; Visit Provider Internal Medicine
DX: R55 Syncope and collapse (principal); I25.2 Old myocardial infarction; S01.01XA Laceration without foreign body of scalp, initial encounter; W07.XXXA Fall from chair, initial encounter; Y93.9 Activity, unspecified; Y92.9 Unspecified place or not applicable; E78.2 Mixed hyperlipidemia; I10 Essential (primary) hypertension; I25.10 Atherosclerotic heart disease of native coronary artery without angina pectoris; E66.9 Obesity, unspecified; Z68.33 Body mass index [BMI] 33.0-33.9, adult; Z71.3 Dietary counseling and surveillance; Z79.899 Other long term (current) drug therapy; Z79.52 Long term (current) use of systemic steroids; Z79.82 Long term (current) use of aspirin; F17.210 Nicotine dependence, cigarettes, uncomplicated
CPT/HCPCS: 12001; 36415; 70450; 71045; 72125; 78452; 80048; 80053; 80061; 80076; 82248; 83735; 84443; 84484; 85025; 85610; 85730; 93005; 93017; 93306; 93880; 96360; 96361; 96372; 97162; 99218; 99285; 99406; A9500; J7030; A4216; G0378; J2785

== ENCOUNTER → 2019-01-05 11:49 | Outpatient (CLI) | payer OTHER, SELFPAY ==
[2019-01-05 11:12] VITALS: BMI 33.0
[2019-01-05 13:12] LABS: AST(SGOT) 15 U/L (15-37); Alanine Aminotransfer ALT/SGPT 29 U/L (13-56); Albumin, Serum 3.8 g/dL (3.2-5.0); Alkaline Phosphatase 101 U/L (45-117); Bilirubin, Direct 0.13 mg/dL (0.00-0.30); Cholesterol 205 mg/dL (200); Globulin 4.1 g/dL (2.2-4.2); High Density Lipoprotein 55 mg/dL; Protein, Total 7.9 g/dL (6.4-8.2); Triglycerides 142 mg/dL; Very Low Density Lipoprotein 28 mg/dL (5-40)
== END ==
PROVIDERS: Referring Provider Internal Medicine Cardiovascular Disease; Visit Provider Internal Medicine Cardiovascular Disease
DX: E78.00 Pure hypercholesterolemia, unspecified (principal)
CPT/HCPCS: 36415; 80061; 80076

== ENCOUNTER → 2019-05-20 10:12 | Outpatient (CLI) | payer OTHER, SELFPAY ==
[2019-01-05 11:12] VITALS: BMI 33.0
[2019-05-20 11:42] LABS: AST(SGOT) 19 U/L (15-37); Alanine Aminotransfer ALT/SGPT 33 U/L (13-56); Albumin, Serum 3.7 g/dL (3.2-5.0); Alkaline Phosphatase 101 U/L (45-117); Bilirubin, Direct 0.14 mg/dL (0.00-0.30); Cholesterol 163 mg/dL (200); Globulin 3.9 g/dL (2.2-4.2); High Density Lipoprotein 50 mg/dL; Protein, Total 7.6 g/dL (6.4-8.2); Triglycerides 139 mg/dL; Very Low Density Lipoprotein 28 mg/dL (5-40)
== END ==
PROVIDERS: Referring Provider Internal Medicine Cardiovascular Disease; Visit Provider Internal Medicine Cardiovascular Disease
DX: E78.2 Mixed hyperlipidemia (principal)
CPT/HCPCS: 36415; 80061; 80076

== ENCOUNTER → 2019-10-26 10:31 | Outpatient (CLI) | payer MEDICARE, OTHER, SELFPAY ==
[2019-10-17 10:24] VITALS: BMI 33.0
[2019-10-26 11:16] LABS: Anion Gap 7 (5-15); BUN 19 mg/dL (7-18); BUN/Creat Ratio 18.6 RATIO (10-20); Calcium,Total 10.4 mg/dL (8.5-10.1); Chloride 102 mmol/L (98-107); Creatinine, Serum 1.02 mg/dL (0.55-1.02); EST Glomerular Filtration Rate 58 mL/min (>60); Est Glom Filt Rate - Afr Amer 70 mL/min (>60); Glucose 102 mg/dL (74-106); Potassium 3.5 mmol/L (3.5-5.1); Sodium Level 137 mmol/L (136-145)
== END ==
PROVIDERS: Referring Provider Internal Medicine Cardiovascular Disease; Visit Provider Internal Medicine Cardiovascular Disease
DX: I25.10 Atherosclerotic heart disease of native coronary artery without angina pectoris (principal); I43 Cardiomyopathy in diseases classified elsewhere; R55 Syncope and collapse; I49.3 Ventricular premature depolarization; E78.2 Mixed hyperlipidemia; I10 Essential (primary) hypertension
CPT/HCPCS: 36415; 80048

== ENCOUNTER → 2019-11-10 10:29 | Outpatient (CLI) | payer MEDICARE, OTHER, SELFPAY ==
[2019-10-17 10:24] VITALS: BMI 33.0
[2019-11-10 12:16] LABS: Anion Gap 3 (5-15); BUN 15 mg/dL (7-18); BUN/Creat Ratio 15.8 RATIO (10-20); Calcium,Total 10.1 mg/dL (8.5-10.1); Chloride 103 mmol/L (98-107); Creatinine, Serum 0.95 mg/dL (0.55-1.02); EST Glomerular Filtration Rate 63 mL/min (>60); Est Glom Filt Rate - Afr Amer 76 mL/min (>60); Glucose 80 mg/dL (74-106); Potassium 3.3 mmol/L (3.5-5.1); Sodium Level 137 mmol/L (136-145)
== END ==
PROVIDERS: Referring Provider Nurse Practitioner Family; Visit Provider Nurse Practitioner Family
DX: I25.10 Atherosclerotic heart disease of native coronary artery without angina pectoris (principal); E87.6 Hypokalemia
CPT/HCPCS: 36415; 80048

== ENCOUNTER → 2019-11-24 10:19 | Outpatient (CLI) | payer MEDICARE, OTHER, SELFPAY ==
[2019-10-17 10:24] VITALS: BMI 33.0
[2019-11-24 11:27] LABS: Anion Gap 2 (5-15); BUN 15 mg/dL (7-18); BUN/Creat Ratio 15.7 RATIO (10-20); Calcium,Total 10.4 mg/dL (8.5-10.1); Chloride 106 mmol/L (98-107); Creatinine, Serum 0.95 mg/dL (0.55-1.02); EST Glomerular Filtration Rate 62 mL/min (>60); Est Glom Filt Rate - Afr Amer 76 mL/min (>60); Glucose 87 mg/dL (74-106); Potassium 4.4 mmol/L (3.5-5.1); Sodium Level 136 mmol/L (136-145)
[2019-11-24 11:38] LABS: AST(SGOT) 18 U/L (15-37); Alanine Aminotransfer ALT/SGPT 35 U/L (13-56); Albumin, Serum 3.8 g/dL (3.2-5.0); Alkaline Phosphatase 105 U/L (45-117); Bilirubin, Direct 0.13 mg/dL (0.00-0.30); Cholesterol 178 mg/dL (200); Globulin 3.9 g/dL (2.2-4.2); High Density Lipoprotein 42 mg/dL; Protein, Total 7.7 g/dL (6.4-8.2); Triglycerides 192 mg/dL; Very Low Density Lipoprotein 38 mg/dL (5-40)
== END ==
PROVIDERS: Internal Medicine Cardiovascular Disease; Referring Provider Nurse Practitioner Family; Visit Provider Nurse Practitioner Family
DX: E78.00 Pure hypercholesterolemia, unspecified (principal); E78.2 Mixed hyperlipidemia; E87.6 Hypokalemia
CPT/HCPCS: 36415; 80048; 80061; 80076

== ENCOUNTER → 2020-06-27 10:37 | Outpatient (CLI) | payer MEDICARE, OTHER, SELFPAY ==
[2020-02-09 13:34] VITALS: BMI 34.5
[2020-06-27 11:58] LABS: AST(SGOT) 17 U/L (15-37); Alanine Aminotransfer ALT/SGPT 34 U/L (13-56); Albumin, Serum 3.8 g/dL (3.2-5.0); Alkaline Phosphatase 107 U/L (45-117); Bilirubin, Direct 0.11 mg/dL (0.00-0.30); Cholesterol 178 mg/dL (200); Globulin 3.9 g/dL (2.2-4.2); High Density Lipoprotein 46 mg/dL; Protein, Total 7.7 g/dL (6.4-8.2); Triglycerides 181 mg/dL; Very Low Density Lipoprotein 36 mg/dL (5-40)
== END ==
PROVIDERS: PCP Internal Medicine Cardiovascular Disease; Referring Provider Internal Medicine Cardiovascular Disease; Visit Provider Internal Medicine Cardiovascular Disease
DX: E78.00 Pure hypercholesterolemia, unspecified (principal); E78.2 Mixed hyperlipidemia
CPT/HCPCS: 36415; 80061; 80076

== ENCOUNTER → 2022-03-10 | Outpatient (CLI) | payer MEDICARE, OTHER, SELFPAY ==
[2022-03-10 10:59] LABS: AST(SGOT) 20 U/L (15-37); Alanine Aminotransfer ALT/SGPT 34 U/L (13-56); Albumin, Serum 3.6 g/dL (3.2-5.0); Alkaline Phosphatase 119 U/L (45-117); Bilirubin, Direct 0.13 mg/dL (0.00-0.30); Cholesterol 188 mg/dL (200); Globulin 4.1 g/dL (2.2-4.2); High Density Lipoprotein 39 mg/dL; Protein, Total 7.7 g/dL (6.4-8.2); Triglycerides 207 mg/dL; Very Low Density Lipoprotein 41 mg/dL (5-40)
== END | disposition home or self-care (01) ==
PROVIDERS: Referring Provider Internal Medicine Cardiovascular Disease; Visit Provider Internal Medicine Cardiovascular Disease
DX: E78.00 Pure hypercholesterolemia, unspecified (principal)
CPT/HCPCS: 36415; 80061; 80076

== ENCOUNTER → 2023-01-23 | Outpatient (CLI) | payer MEDICARE, OTHER, SELFPAY ==
[2023-01-23 12:47] LABS: AST(SGOT) 21 U/L (15-37); Alanine Aminotransfer ALT/SGPT 46 U/L (13-56); Albumin, Serum 3.7 g/dL (3.2-5.0); Alkaline Phosphatase 116 U/L (45-117); Bilirubin, Direct 0.17 mg/dL (0.00-0.30); Cholesterol 177 mg/dL (200); High Density Lipoprotein 42 mg/dL; Protein, Total 7.7 g/dL (6.4-8.2); Triglycerides 169 mg/dL; Very Low Density Lipoprotein 34 mg/dL (5-40)
== END | disposition home or self-care (01) ==
LOC: MTLAB 11:15
PROVIDERS: Referring Provider Nurse Practitioner Family; Visit Provider Nurse Practitioner Family
DX: E78.2 Mixed hyperlipidemia (principal)
CPT/HCPCS: 36415; 80061; 80076

== ENCOUNTER → 2023-02-25 | Outpatient (CLI) | payer MEDICARE, OTHER, SELFPAY ==
--- NOTE | 2023-02-25 13:25 | MRI_ITS ---
STUDY: MRI BRAIN WITHOUT CONTRAST (ATTENTION INTERNAL AUDITORY CANALS - I.A.C.''s) REASON FOR EXAM: Female, 67 years old. SUDDEN SENSOINEURAL HEARING LOSS LEFT EAR TECHNIQUE: Standardized multiplanar fat and water weighted pulse sequences were obtained. COMPARISON: Head CT dated October 11, 2018 FINDINGS: Normal bilateral internal auditory canals. There is no demonstrated intracanalicular or cisternal vestibular schwannoma (acoustic neuroma) on this unenhanced examination. Normal visualized bilateral cochlea, vestibules and semicircular canals. Normal bilateral mastoid air cells. No demonstrated cerebellar pontine angle mass or cyst. No cavernous sinus sinus abnormality is visualized. No visualized abnormal opacification of the mastoid air cells. Normal midbrain, krista and medulla. Normal cerebellum. Normal basal cisterns. Normal size of the ventricles and extra-axial spaces for the patient''s age. There are a limited number of small white matter hyperintensities, distributed throughout the deep white matter tracts of the cerebral hemispheres, consistent with mild chronic white matter ischemic changes. There is no evidence for recent intracranial ischemia or other cause of cytotoxic edema on diffusion weighted imaging (DWI). Normal T2* images of the brain without demonstrated susceptibility artifact. There is no demonstrated hemosiderin stain. Normal bilateral basal ganglia. Normal thalami. There is no extra-axial fluid accumulation. Normal flow voids within the major intracranial circulation suggesting patency by spin echo criteria. Normal sella turcica, pituitary gland, infundibular stalk, optic chiasm and hypothalamus. Normal tectal plate and pineal gland. No demonstrated orbital abnormality, within the constraints of a routine brain study. Normal visualized paranasal sinuses. Normal calvarium and skull base. Normal visualized soft tissue structures. MRI/Brain without Contrast IMPRESSION: 1. Normal unenhanced MRI of the bilateral internal auditory canals (I.A.C''s). 2. Normal bilateral mastoid air cells. No demonstrated cerebellar pontine angle mass or cyst. No cavernous sinus sinus abnormality is visualized. No visualized abnormal opacification of the mastoid air cells. 3. Minor chronic ischemic changes of the brain, as described above. Electronically Signed: Rodger Nur MD at 15:18 EST ,
== END | disposition home or self-care (01) ==
LOC: MRI 13:13
PROVIDERS: Referring Provider Otolaryngology; Visit Provider Otolaryngology
DX: H91.22 Sudden idiopathic hearing loss, left ear (principal)
CPT/HCPCS: 70551

== ENCOUNTER → 2023-06-16 | Outpatient (CLI) | payer MEDICARE, OTHER, SELFPAY ==
[2023-06-16 15:16] LABS: Absolute Lymphocyte Count 2.07 X10^3/uL (0.83-4.51); Absolute Neutrophil Count 4.9 X10^3/uL (2.0-7.7); Basophil# 0.07 X10^3/uL; Basophil% 0.9 % (0-1); Eosinophil# 0.19 X10^3/uL; Eosinophils% 2.4 % (0-5); Hematocrit 44.4 % (37-47); Hemoglobin 14.3 g/dL (12.0-15.0); Lymphocyte # 2.07 X10^3/ul (0.83-4.51); Lymphocyte % 26.2 % (19-41); Mean Corp Hgb Conc 32.2 g/dL (32-36); Mean Corpuscular Hgb 29.7 pg (27.0-32.0); Mean Corpuscular Volume 92.3 fL (81-99); Mean Platelet Vol. 10.1 fl (6.2-12.0); Monocyte# 0.67 X10^3/uL; Monocyte% 8.5 % (0-10); NRBC Flagged by Analyzer 0 % (0-5); Neutrophil # 4.88 X10^3/uL (2.7-7.7); Neutrophil % 61.6 % (47-70); Platelet Count 293 K/mm3 (150-450); RBC Distribution Width CV 12.6 % (11.6-14.6); RBC Distribution Width SD 42.9 fl (35.1-43.9); Red Blood Count 4.81 M/mm3 (4.2-5.4); White Blood Count 7.9 K/mm3 (4.4-11.0)
[2023-06-16 16:18] LABS: AST(SGOT) 20 U/L (15-37); Alanine Aminotransfer ALT/SGPT 34 U/L (13-56); Albumin, Serum 3.8 g/dL (3.2-5.0); Alkaline Phosphatase 109 U/L (45-117); Anion Gap 6 (5-15); BUN 15 mg/dL (7-18); BUN/Creat Ratio 9.6 RATIO (10-20); Calcium,Total 10.2 mg/dL (8.5-10.1); Chloride 106 mmol/L (98-107); Creatinine, Serum 1.56 mg/dL (0.55-1.02); EST Glomerular Filtration Rate 35 mL/min (>60); Est Glom Filt Rate - Afr Amer 42 mL/min (>60); Globulin 3.7 g/dL (2.2-4.2); Glucose 107 mg/dL (74-106); Protein, Total 7.5 g/dL (6.4-8.2); Sodium Level 140 mmol/L (136-145)
== END | disposition home or self-care (01) ==
LOC: LAB 14:41
PROVIDERS: Referring Provider Nurse Practitioner Family; Visit Provider Nurse Practitioner Family
DX: I25.10 Atherosclerotic heart disease of native coronary artery without angina pectoris (principal); I43 Cardiomyopathy in diseases classified elsewhere; I49.3 Ventricular premature depolarization; E78.2 Mixed hyperlipidemia; I10 Essential (primary) hypertension
CPT/HCPCS: 36415; 80053; 83735; 85025

== ENCOUNTER → 2023-07-22 | Outpatient (CLI) | payer MEDICARE, OTHER, SELFPAY ==
[2023-07-22 14:06] LABS: AST(SGOT) 20 U/L (15-37); Alanine Aminotransfer ALT/SGPT 33 U/L (13-56); Albumin, Serum 3.9 g/dL (3.2-5.0); Alkaline Phosphatase 114 U/L (45-117); Anion Gap 4 (5-15); BUN 11 mg/dL (7-18); BUN/Creat Ratio 12.1 RATIO (10-20); Bilirubin, Direct 0.16 mg/dL (0.00-0.30); Calcium,Total 10.3 mg/dL (8.5-10.1); Chloride 109 mmol/L (98-107); Cholesterol 187 mg/dL (200); Creatinine, Serum 0.91 mg/dL (0.55-1.02); EST Glomerular Filtration Rate 65 mL/min (>60); Est Glom Filt Rate - Afr Amer 79 mL/min (>60); Globulin 3.9 g/dL (2.2-4.2); Glucose 93 mg/dL (74-106); High Density Lipoprotein 46 mg/dL; Potassium 4.5 mmol/L (3.5-5.1); Protein, Total 7.8 g/dL (6.4-8.2); Sodium Level 139 mmol/L (136-145); Triglycerides 143 mg/dL; Very Low Density Lipoprotein 29 mg/dL (5-40)
== END | disposition home or self-care (01) ==
LOC: LAB 13:03
PROVIDERS: Referring Provider Nurse Practitioner Family; Visit Provider Nurse Practitioner Family
DX: E78.2 Mixed hyperlipidemia (principal); R89.9 Unspecified abnormal finding in specimens from other organs, systems and tissues
CPT/HCPCS: 36415; 80048; 80061; 80076

== ENCOUNTER → 2024-07-06 | Outpatient (CLI) | payer MEDICARE, OTHER, SELFPAY ==
[2024-07-06 13:07] LABS: AST(SGOT) 26 U/L (<=31); Alanine Aminotransfer ALT/SGPT 29 U/L (<=34); Albumin, Serum 4.4 g/dL (3.4-4.8); Alkaline Phosphatase 107 U/L (35-104); Cholesterol 209 mg/dL (<=200); Globulin 3.3 g/dL (2.2-4.2); High Density Lipoprotein 53 mg/dL; Low Density Lipoprotein Calc. 122 mg/dL; Protein, Total 7.7 g/dL (5.9-8.4); Total Bilirubin 0.56 mg/dL (0.00-1.30); Triglycerides 172 mg/dL; Very Low Density Lipoprotein 34 mg/dL (5-40); cholesterol:hdl ratio screen 3.97
== END | disposition home or self-care (01) ==
LOC: LAB 12:04
PROVIDERS: Referring Provider Nurse Practitioner Family; Visit Provider Nurse Practitioner Family
DX: E78.00 Pure hypercholesterolemia, unspecified (principal)
CPT/HCPCS: 36415; 80061; 80076

== ENCOUNTER → 2024-08-31 | Outpatient (CLI) | payer MEDICARE, OTHER, SELFPAY ==
--- NOTE | 2024-08-31 12:51 | ECHOD_ITS ---
Reason For Study : ASHD/CAD Procedure This was a 2D Doppler, Color Flow transthoracic echocardiogram. Exam performed in department. Left Ventricle Normal LV size. The left ventricular ejection fraction is 55 %. Stage 1 diastolic dysfunction. No regional wall motion abnormalities noted. Right Ventricle Normal RV size. Normal systolic function. Atria Normal left atrium. Normal right atrium. Mitral Valve Normal mitral valve. Tricuspid Valve Normal tricuspid valve. Aortic Valve Trisinus/trileaflet aortic valve. Pulmonic Valve Normal pulmonic valve. Great Vessels Mild to moderately dilated aortic root. The pulmonary artery is normal size. Normal inferior vena cava. Pericardium/Pleural No pericardial effusion. MMode/2D Measurements & Calculations LVIDd: 5.7 cm IVSd: 1.1 cm Ao root diam: 4.2 cm LVIDs: 4.3 cm LVPWd: 1.1 cm RVDd: 2.9 cm FS: 24.3 % LAV(MOD-bp): 76.1 ml LVAd ap4: 26.1 cm2 LVAd ap2: 17.7 cm2 LAV(MOD-bp) Indexed: 36.1 ml/m2 LVLd ap4: 7.3 cm LVLd ap2: 6.6 cm LAV(MOD-sp2): 68.4 ml EDV(MOD-sp4): 78.7 ml EDV(MOD-sp2): 41.2 ml LAV(MOD-sp4): 74.1 ml EDV(sp4-el): 79.0 ml EDV(sp2-el): 40.3 ml LVAs ap4: 16.1 cm2 LVAs ap2: 10.8 cm2 LVLs ap4: 6.2 cm LVLs ap2: 5.7 cm ESV(MOD-sp4): 37.9 ml ESV(MOD-sp2): 19.8 ml ESV(sp4-el): 35.7 ml ESV(sp2-el): 17.3 ml EF(MOD-sp4): 51.8 % EF(MOD-sp2): 52.1 % EF(sp4-el): 54.8 % SV(MOD-sp4): 40.8 ml SV(MOD-sp2): 21.5 ml SV(sp4-el): 43.3 ml SI(MOD-sp4): 19.4 ml/m2 SI(MOD-sp2): 10.2 ml/m2 LA A4 area: 21.7 cm2 LA dimension(2D): 4.6 cm RA A4 area: 15.1 cm2 TAPSE: 2.1 cm Time Measurements MV dec time: 0.17 sec Doppler Measurements & Calculations MV E max ajit: 59.6 cm/sec Lat Peak E' Ajit: 8.1 cm/sec Med Peak E' Ajit: 8.3 cm/sec MV A max ajit: 71.3 cm/sec E/E' lat: 7.4 E/E' med: 7.2 MV E/A: 0.84 MV V2 max: 78.1 cm/sec MV P1/2t max ajit: 63.8 cm/sec Ao V2 max: 126.6 cm/sec MV max P.4 mmHg MV P1/2t: 60.8 msec Ao max P.4 mmHg MV V2 mean: 48.2 cm/sec Ao V2 mean: 88.4 cm/sec MV mean P.0 mmHg MV dec slope: 307.4 cm/sec2 Ao mean P.4 mmHg MV V2 VTI: 18.1 cm MVA(P1/2t): 3.6 cm2 Ao V2 VTI: 24.6 cm AV (velocity ratio): 0.65 LV V1 max: 87.0 cm/sec PA V2 max: 88.0 cm/sec LV V1 max P.0 mmHg PA V2 mean: 67.5 cm/sec LV V1 mean P.5 mmHg ECHO/Echo Complete Interpretation Summary Normal LV size. The left ventricular ejection fraction is 55 %. No regional wall motion abnormalities noted. Stage 1 diastolic dysfunction. Mild to moderately dilated aortic root. Ordering Physician: Real Kilgore Referring Physician: NO PCP Performed By: Rosalina Riley, ABUNDIO, RVT
[2024-08-31 14:45] LABS: AST(SGOT) 21 U/L (<=31); Alanine Aminotransfer ALT/SGPT 23 U/L (<=34); Albumin, Serum 4.2 g/dL (3.4-4.8); Alkaline Phosphatase 113 U/L (35-104); Anion Gap 13 (5-15); BUN 11 mg/dL (4-19); Bilirubin, Direct 0.32 mg/dL (0.00-0.30); Calcium,Total 10.3 mg/dL (7.6-11.0); Carbon Dioxide 22.9 mmol/L (21.0-32.0); Chloride 101 mmol/L (98-108); Cholesterol 183 mg/dL (<=200); Creatinine, Serum 0.86 mg/dL (0.70-1.20); EST Glomerular Filtration Rate 73 (>60); Globulin 3.4 g/dL (2.2-4.2); Glucose 105 mg/dL (70-99); High Density Lipoprotein 50 mg/dL; Low Density Lipoprotein Calc. 110 mg/dL; Potassium 4.2 mmol/L (3.3-5.1); Protein, Total 7.6 g/dL (5.9-8.4); Sodium Level 137 mmol/L (133-145); Total Bilirubin 0.85 mg/dL (0.00-1.30); Triglycerides 114 mg/dL; Very Low Density Lipoprotein 23 mg/dL (5-40); cholesterol:hdl ratio screen 3.64
== END | disposition home or self-care (01) ==
PROVIDERS: Referring Provider Internal Medicine Cardiovascular Disease; Visit Provider Internal Medicine Cardiovascular Disease
DX: I10 Essential (primary) hypertension (principal); E78.2 Mixed hyperlipidemia; I25.10 Atherosclerotic heart disease of native coronary artery without angina pectoris
CPT/HCPCS: 36415; 80048; 80061; 80076; 93306